=== PATIENT | male | born 1960 | race Caucasian/White ===

== ENCOUNTER 2016-02-20 15:18 | Emergency (ER) | payer OTHER ==
[~2016-02-20 15:18] MED LIST: ASPIRIN EC LOW81 MG PO; ATIVAN0.5 MG PO; ATORVASTATIN CA20 MG PO; COUMADIN5 MG PO; LASIX40 MG PO; METFORMIN HCL500 MG PO; METOPROLOL TART25 MG PO; POTASSIUM CHLO10 ME2 PO; PROAIR HFA IN; QVAR80 MCG IN; TYLENOL325 MG PO
--- NOTE | 2016-02-20 19:06 | DIAGNOSTIC IMAGING REPORT ---
PROCEDURE: XR CHEST 1 VIEW INDICATION: CHEST PAIN TECHNIQUE: Portable AP view 06:33 p.m. COMPARISON: Chest 02/02/2016 FINDINGS: Lungs are clear. Heart and mediastinum are normal. Thorax is normal. IMPRESSION: 1. No acute disease
--- NOTE | 2016-02-20 21:31 | ED ORDER SUMMARY ---
..... Patient: RAMIRO NAVARRO OrderSheet [facility] VisitID: [id number] [place] [address] 55y, M Registration Date/Time: 02/20/2016 ORDER SHEET Weight: 99.7 kg (stated) Allergies: Codeine GENERAL ORDERS: Travelift Operator (Continuous) (Chest Pain) (16:10 02/20/2016 JRghislaine R.N. verbal order read back to Markos DOBBINS) (16:38 LNations ER Tech1) CBC w Diff Urgent (16:10 02/20/2016 JRghislaine R.N. verbal order read back to Markos DOBBINS) (Ack 16:17 [facility] ER Tech1) (Cancelled: Duplicate Order16:47 Markos DOBBINS) CMP Urgent (16:02/20/2016 JRghislaine R.N. verbal order read back to Markos DOBBINS) (Ack 16:17 [facility] ER Tech1) (Cancelled: Duplicate Order16:47 Markos DOBBINS) EKG - ER Stat (16:10 02/20/2016 JRghislaine R.N. verbal order read back to Markos DOBBINS) (16:38 LNations ER Tech1) Old Records (16:10 02/20/2016 JRomanelli R.N. verbal order read back to Markos DOBBINS) (Ack 16:32 [facility] ER Tech1) (16:51 [facility] ER Tech1) Cardiac Panel Stat (16:10 02/20/2016 JRghislaine R.N. verbal order read back to Markos DOBBINS) (Ack 16:17 [facility] ER Tech1) (16:51 JRomanelli R.N.) PT with INR Urgent (16:24 02/20/2016 JRbarreraelli R.N. verbal order read back to Markos DOBBINS) (Ack 16:30 [facility] ER Tech1) (16:51 JRomanelli R.N.) UA-Culture if indicated Urgent (16:24 02/20/2016 JRomanelli R.N. verbal order read back to Markos DOBBINS) (Ack 16:30 [facility] ER Tech1) (18:05 JRomanelli R.N.) BNP Urgent (16:48 02/20/2016 Markos DOBBINS) (16:51 Jeovanny Bryant) Chest 1V Urgent (18:28 02/20/2016 Markos DOBBINS) (18:47 MCampbell) MEDICATION ORDERS: NitroGLYCERIN SL 0.4 mg (x3 PRN Chest Pain) (18:23 02/20/2016 Markos DOBBINS) (18:29 Jeovanny Zavala.NMartina) NitroGLYCERIN Paste Topical 1 in. (NOW, to CW) (18:52 02/20/2016 Jeovanny Bryant verbal order read back to Markos DOBBINS) (18:54 Jeovanny Villafuerte.) IV FLUIDS: IV Saline Lock (16:10 02/20/2016 Jeovanny Bryant verbal order read back to Markos DOBBINS) (18:28 Jeovanny Bryant) ORDER SHEET NOTES: [Electronically signed by Lolita Bundy R.N. (00:57 02/21/2016)] [Electronically signed by Farhad Stephens MD (14:16 02/21/2016)] [Electronically locked/signed by Lolita Bundy R.N. (00:57 02/21/2016)]
--- NOTE | 2016-02-20 21:31 | ED CLINICAL REPORT ---
Clinical Report - Physicians/Mid Levels [facility] [address] [place] [address] 02/20/2016 15:20 [facility]: [id number] Time Seen: 15:56 Feb 20 2016. Arrived- By private vehicle. Historian- patient. CPT: ER phys charges level 5 plus (#[id number]). EKG interpretation (#[id number]). HISTORY OF PRESENT ILLNESS Chief Complaint: DYSPNEA. This started about 1400; HAd a spell of palpitations with chest pressure. The palpitations l;asted 30 minutes and when it quit the pressure went down to a residual 2/10 level. and is still present but is better now. The dyspnea is described as moderate. (none). No cough, sputum production, fever, sweating episodes or wheezing. No chills, calf pain or foot swelling. He has had chest discomfort and palpitations. Similar symptoms previously: Worse. Recent medical care: The patient was seen recently at this facility in the emergency department and hospitalized (17 days ago). ( Admitted at [facility] then had a follow up cardiac ETT at [facility] , Per Dr Monson, but pt has not heard the results yet.). Seen for similar symptoms. Evaluation/treatment- CTA negative. REVIEW OF SYSTEMS The patient has not had weight loss. No muscle aches, sore throat or throat, nasal discharge or sinus drainage. No nausea, vomiting, abdominal pain or pain or diarrhea. No black stools or stools, bloody stools or stools or headache. No fainting episodes, difficulty with urination or urination or excessive urination. No skin rash or rash, enlarged lymph nodes, joint pain or runny nose. No mouth sores, calf pain, cough, difficulty breathing or urinary frequency. No alteration in mental status, weakness, diabetic symptoms or easy bruising. EF 25% on prior Nuclear ETT per discussion with Dr. Monson. All systems otherwise negative, except as recorded above. PAST HISTORY Atrial Fibrillation. Chest Pain. Lung Disease. Irregular heartbeat. COPD - Chronic Obstructive Pulmonary Disease. Mental Illness. Pulmonary Embolism. Anxiety Reaction. PTSD. Chronic Back Pain. Diabetes Mellitus. Substance Abuse. Hypertension. Immunizations. Sciatica. Intervertebral Disc Disease. Lumbar Radiculopathy. Back Injury. --16:06 Andrea Tubbs R.N. ADDITIONAL SURGERIES: Back Surgery. Knee Surgery. Tonsillectomy. Medications: Lasix Oral 40 mg. Metoprolol Tartrate Oral 25 mg. Potassium Chloride Oral 20 meq, daily. ProAir HFA Inhalation. Qvar Inhalation. Warfarin Sodium Oral 5 mg. Allergies: Codeine. Definite Moderate(itching, swelling). SOCIAL HISTORY Former smoker. History of drug use: marijuana. No alcohol use. ADDITIONAL NOTES The nursing notes have been reviewed. PHYSICAL EXAM Vital Signs: 02/20/2016 15:59 BP: 127/82. HR: 68. RR: 18. O2 saturation: 98%. Temp: 98.8 F. Pain level now: 03/23. Appearance: Alert. Patient in mild distress. Eyes: Eyes normal inspection. ENT: Pharynx normal. Uvula midline. Neck: Normal inspection. No jugular venous distention. CVS: Normal heart rate and rhythm. Heart sounds normal. Pulses normal. Respiratory: No respiratory distress. Breath sounds normal. Abdomen: Soft and nontender. Back: Normal inspection. Skin: Skin warm. Normal skin color. No rash. Extremities: Extremities exhibit normal ROM. No lower extremity edema. Neuro: Oriented X 3. No motor deficit. No sensory deficit. Reflexes normal. LABS, X-RAYS, AND EKG EKG: Normal sinus rhythm. Normal P waves. Normal QRS complex. Normal axis. Non-specific ST segment / T wave abnormalities. EKG unchanged when compared with prior EKG. The study has been interpreted contemporaneously. The study has been independently viewed by me. The EKG appears to be a good tracing. Chest X-ray: Normal Chest X-Ray. Laboratory Tests: UA-Culture if indicated: (VALENTIN: 02/20/2016 17:30) ( MsgRcvd 02/20/2016 17:52) Final results Test Result Flag Units (Reference) URINE COLOR YELLOW URINE APPEARANCE CLEAR URINE GLUCOSE NEGATIVE (NEGATIVE) URINE BILIRUBIN NEGATIVE (NEGATIVE) URINE KETONE NEGATIVE (NEGATIVE) URINE SPECIFIC GRAVITY 1.025 (1.010-1.030) URINE PH 6.0 (5.0-8.0) URINE PROTEIN NEGATIVE (NEGATIVE) URINE UROBILINOGEN 0.2 EU/dL (0.2-1.0) URINE NITRITE NEGATIVE (NEGATIVE) URINE BLOOD NEGATIVE (NEGATIVE) URINE LEUK ESTERASE NEGATIVE (NEGATIVE) URINE RBC NONE SEEN rbc/hpf (0-1) URINE WBC 0-1 wbc/hpf (0-1) URINE EPITHELIAL CELLS RARE EPI/hpf (0-5) URINE BACTERIA TRACE (<1+) (NONE SEEN) URINE COMMENT CULT NOT INDICATED URINE CULTURES ARE SET-UP BASED ON THE FOLLOWING CRITERIA:POSITIVE NITRITEPOSITIVE LEUKOCYTE ESTERASEGREATER THAN 10 WHITE BLOOD CELLSMODERATE (2+) OR GREATER BACTERIA CBC w Diff: (VALENTIN: 02/20/2016 16:15) ( [facility] 02/20/2016 17:54) Final results Test Result Flag Units (Reference) WHITE BLOOD COUNT 7.1 K/uL (4.5-11.5) RED BLOOD COUNT 6.13 *H M/uL (4.50-5.90) HEMOGLOBIN 17.8 H gm/dL (13.5-17.5) HEMATOCRIT 53.6 H % (41.0-53.0) MEAN CELL VOLUME 87 fL (80-100) MEAN CORPUSCULAR HGB 29 pg (26-34) MEAN CORPUSCULAR HGB CONC 33 g/dL (31-37) RED CELL DISTRIBUTION WIDTH 13.9 % (11.6-14.8) PLATELET COUNT 216 K/uL (150-400) NEUTROPHIL % 63.4 % (50-75) LYMPH % 22.3 L % (25-40) MONO % 10.9 % (3-14) EOSINOPHIL % 2.3 % (0-4) BASOPHIL % 1.1 % (0-2) RBC MORPHOLOGY 1+ ERYTHROCYTOSIS~~NORMOCHROMIC~~NORMOCYTIC PT with INR: (VALENTIN: 02/20/2016 16:15) ( MsgRcvd 02/20/2016 16:40) Final results Test Result Flag Units (Reference) INR 1.4 H (0.8-1.2) Low Intensity Therapy: INR 1.5-2.0 PT range 18.5-23.1Mod.Intensity Therapy: INR 2.0-3.0 PT range 23.1-31.5High Intensity Therapy: INR 2.5-3.5 PT range 27.4-35.5High Intensity Therapy 2: INR 3.0-4.0 PT range 31.5-39.3 BNP: (VALENTIN: 02/20/2016 16:35) ( NhgRcvd 02/20/2016 17:17) Final results Test Result Flag Units (Reference) B-TYPE NATRIURETIC PEPTIDE 142 H pg/ml (5-100) CHEM 13 PANEL: (VALENTIN: 02/20/2016 16:15) ( NhgRcvd 02/20/2016 16:51) Final results Test Result Flag Units (Reference) GLUCOSE 149 H mg/dL (70-110) BUN 30 H mg/dL (7-18) CREATININE 1.2 mg/dL (0.6-1.3) Estimated GFR >60 mL/min Estimated GFR- >60 mL/min Note: Persistent reduction over 3 months in eGFR<60 mL/min/1.73 m2 defines CKD. Patients with eGFR values>=60 mL/min/1.73 m2 may also have CKD if evidence ofpersistent proteinuria. Additional information may be foundat www.kidney.org. SODIUM 137 mmol/L (136-145) POTASSIUM 4.5 mmol/L (3.5-5.1) CHLORIDE 104 mmol/L (98-107) CARBON DIOXIDE 29 mmol/L (21-32) CALCIUM 8.7 mg/dL (8.5-10.1) TOTAL PROTEIN 7.5 g/dL (6.4-8.2) ALBUMIN 3.5 g/dL (3.3-5.0) BILIRUBIN, TOTAL 0.5 mg/dL (0.0-1.0) ALKALINE PHOSPHATASE 100 U/L (46-116) AST (SGOT) 26 U/L (15-37) ALT (SGPT) 55 U/L (12-78) CPK 49 U/L (24-260) MAGNESIUM 2.1 mg/dL (1.8-2.4) TROPONIN I <0.05 ng/mL (0.00-1.5) TROPONIN REFERENCE RANGE:<0.1 NEGATIVE0.1-1.5 INDETERMINANT>1.5 POSITIVE . PROGRESS AND PROCEDURES Course of Care: ASA already taken at home by the patient NTG in the ER and resolution of the 2/10 chest pressure. NTG paste applied and pt remained stable. Discussed with Dr Monson , Safety Glass Installer and he notes pt got an ETT , not a cath. That there were mild abnormalities on the ETT. EF was 25% . Pt had a run of wide complex tachycardia in the ER. The strip and the admission EKG were faxed to Dr Monson for evaluation. It was recommended for unstable angina that the patient be admitted for possible cath at [facility]. Attrempt to acquire bed at [facility] failed due to lack of beds. Several further attempts were made to contact outside hospitals that may have a bed. In the process of talking with other hospitals, the patient decided he did not want to wait and was going to go home. Discussed risks including disability and . Pt still wants to go home. He will see his card sorter tomorrow. Pt given rx of nitroglycerin paste and told to continue ASA daily. Pt will leave AMA. Patient/family counseled. Old medical records ordered. Disposition: Discharged. Condition: guarded and improved. CLINICAL IMPRESSION New onset angina .12 lead EKG performed. Leaving AMA Mild polycythemia Pre-renal azotemia. INSTRUCTIONS No strenuous activity. Rest. (Aspirin 325 mg a day. Increase your metoprolol to double the dose.). Your Current Medications: CONTINUE TAKING THE FOLLOWING MEDICATIONS: Albuterol Sulfate Inhalation : 1-2 puffs PRN. Aspirin Oral : Tablet 81 mg, 1 tablet daily. Lasix Oral : 40 mg. Lipitor Oral : 40 mg at bedtime. Lisinopril Oral : 10 mg daily. LORazepam Oral : 0.5 mg 3x a day, prn. Metoprolol Tartrate Oral : 50 mg 2 x daily. Metoprolol-HCTZ ER Oral : Tablet Extended Release 24 Hour 25-12.5 mg, 25 mg daily in AM. Potassium Chloride ER Oral. Potassium Chloride Oral : 20 meq daily. ProAir HFA Inhalation. Qvar Inhalation : Aerosol Solution 40 mcg/act, one puff 2 x daily. Warfarin Sodium Oral : 5 mg 1-2 tabs daily, prn, per MD's order. Prescription Medications: Nitrol: apply 1 inch to chest wall every 8 hours. Dispense sixty (60) gm. No refills. Substitution is permissible. Follow-up: Follow up with a card sorter tomorrow. Call for the next available appointment. Understanding of the discharge instructions verbalized by patient. (Electronically signed by Farhad Stephens MD 02/21/2016 14:16)
--- NOTE | 2016-02-20 21:31 | ED ORDER SUMMARY ---
..... Patient: RAMIRO NAVARRO OrderSheet [facility] VisitID: [id number] [place] [address] 55y, M Registration Date/Time: 02/20/2016 ORDER SHEET Weight: 99.7 kg (stated) Allergies: Codeine GENERAL ORDERS: Handle And Vent Machine Operator (Continuous) (Chest Pain) (16:10 02/20/2016 JRghislaine R.N. verbal order read back to Markos DOBBINS) (16:38 LNations ER Tech1) CBC w Diff Urgent (16:10 02/20/2016 JRghislaine R.N. verbal order read back to Markos DOBBINS) (Ack 16:17 [facility] ER Tech1) (Cancelled: Duplicate Order16:47 Markos DOBBINS) CMP Urgent (16:02/20/2016 JRghislaine R.N. verbal order read back to Markos DOBBINS) (Ack 16:17 [facility] ER Tech1) (Cancelled: Duplicate Order16:47 Markos DOBBINS) EKG - ER Stat (16:10 02/20/2016 JRghislaine R.N. verbal order read back to Markos DOBBINS) (16:38 LNations ER Tech1) Old Records (16:10 02/20/2016 JRomanelli R.N. verbal order read back to Markos DOBBINS) (Ack 16:32 [facility] ER Tech1) (16:51 [facility] ER Tech1) Cardiac Panel Stat (16:10 02/20/2016 JRghislaine R.N. verbal order read back to Markos DOBBINS) (Ack 16:17 [facility] ER Tech1) (16:51 JRomanelli R.N.) PT with INR Urgent (16:24 02/20/2016 JRbarreraelli R.N. verbal order read back to Markos DOBBINS) (Ack 16:30 [facility] ER Tech1) (16:51 JRomanelli R.N.) UA-Culture if indicated Urgent (16:24 02/20/2016 JRomanelli R.N. verbal order read back to Markos DOBBINS) (Ack 16:30 [facility] ER Tech1) (18:05 JRomanelli R.N.) BNP Urgent (16:48 02/20/2016 Markos DOBBINS) (16:51 Jeovanny Bryant) Chest 1V Urgent (18:28 02/20/2016 Markos DOBBINS) (18:47 MCampbell) MEDICATION ORDERS: NitroGLYCERIN SL 0.4 mg (x3 PRN Chest Pain) (18:23 02/20/2016 Markos DOBBINS) (18:29 Jeovanny Zavala.NMartina) NitroGLYCERIN Paste Topical 1 in. (NOW, to CW) (18:52 02/20/2016 Jeovanny Bryant verbal order read back to Markos DOBBINS) (18:54 Jeovanny Villafuerte.) IV FLUIDS: IV Saline Lock (16:10 02/20/2016 Jeovanny Bryant verbal order read back to Markos DOBBINS) (18:28 Jeovanny Bryant) ORDER SHEET NOTES: [Electronically signed by Lolita Bundy R.N. (00:57 02/21/2016)] [Electronically signed by Farhad Stephens MD (14:16 02/21/2016)] [Electronically locked/signed by Lolita Bundy R.N. (00:57 02/21/2016)]
--- NOTE | 2016-02-20 21:31 | ED NURSING NOTES ---
Clinical Report - Nurses [facility] [address] [place] [address] 02/20/2016 15:20 Patient: RAMIRO NAVARRO TRIAGE Triage time 15:55 Feb 20 2016. Acuity: LEVEL 3. Chief Complaint: SHORTNESS OF BREATH and (cardiac dysrhytmias). Alert. SUDEEP COMA SCORE: Sudeep Coma Scale: 15- eyes open spontaneously (4); best verbal response- oriented x 4 (5); best motor response- obeys commands (6). --17:08 Andrea Tubbs R.N. 15:59 02/20/16. BP: 127/82. HR: 68. RR: 18. O2 saturation: 98% on room air. Temp: 98.8 F (oral). Pain level now: 2/10. Additional comments: Chest Pain. --17:08 Andrea Tubbs R.N. Weight: 99.7 kg stated. Height/Length: 72 inches Per Patient. BMI: 29.8. --16:03 Andrea uTbbs R.N. Medications Metoprolol Tartrate Oral 50 mg, 2 x daily. --16:02 Andrea Tubbs R.N. Qvar Inhalation (Aerosol Solution 40 mcg/act) one puff, 2 x daily. Warfarin Sodium Oral 5 mg 1-2 tabs, daily as needed (per MD's order). --16:02 Andrea Tubbs R.N. Lasix Oral 40 mg. Potassium Chloride Oral 20 meq, daily. ProAir HFA Inhalation. --16:02 Andrea Tubbs R.N. Metoprolol-HCTZ ER Oral (Tablet Extended Release 24 Hour 25-12.5 mg) 25 mg, daily in AM. --18:12 Andrea Tubbs R.N. Lisinopril Oral 10 mg, daily. --18:13 Andrea Tubbs R.N. LORazepam Oral 0.5 mg, 3x a day as needed. --18:13 Andrea Tubbs R.N. Lipitor Oral 40 mg, at bedtime. --18:14 Andrea Tubbs R.N. Aspirin Oral (Tablet 81 mg) 1 tablet, daily. --18:14 Andrea uTbbs R.N. Potassium Chloride ER Oral. --18:15 Andrea Tubbs R.N. Albuterol Sulfate Inhalation 1-2 puffs, PRN. --18:18 Andrea Tubbs R.N. The following entry was struck and corrected by Andrea Tubbs R.N., 18:18 (02/20/16) Reason for correction - other(correction). <<STRICKEN ENTRY-- Warfarin Sodium Oral 5 mg. --16:02 Andrea Tubbs R.N. --END STRIKE>> The following entry was struck and corrected by Andrea Tubbs R.N., 18:17 (02/20/16) Reason for correction - other(correction). <<STRICKEN ENTRY-- Qvar Inhalation. --16:02 Andrea Tubbs R.N. --END STRIKE>> The following entry was struck and corrected by Andrea Tubbs R.N., 18:12 (02/20/16) Reason for correction - other(correction). <<STRICKEN ENTRY-- Metoprolol Tartrate Oral 75 mg in AM, 25mg in PM, 2 x daily. --16:02 Andrea Tubbs R.N. --END STRIKE>> The following entry was struck and corrected by Andrea Tubbs R.N., 17:42 (02/20/16) Reason for correction - other(correction). <<STRICKEN ENTRY-- Metoprolol Tartrate Oral 25 mg. --16:02 Andrea Tubbs R.N. --END STRIKE>>. Allergies Codeine. Definite Moderate(itching, swelling) --16:02 Andrea Tubbs R.N. History Arrived by private vehicle. Historian: patient. Accompanied by family. Primary physician (Ermias (Cardio)). ( SOB and heart fluttering). Onset. (about 3 hours ago). He has had chills, a cough, wheezing and chest pain. Treatment INSOLE AND HEEL STIFFENER: None. PAST MEDICAL HX: Immunizations: status is unknown. SOCIAL HX: Former smoker, end date 01/2016. History of drug use: marijuana. No alcohol use. No infectious disease exposure. ABUSE ASSESSMENT: No report of abuse. FALL RISK ASSESSMENT: Fall risk assessment completed. No fall risk identified. NUTRITIONAL RISK ASSESSMENT: The nutritional risk assessment revealed no deficiencies. FUNCTIONAL ASSESSMENT: Functional assessment: no impairments noted. LEARNING NEEDS ASSESSMENT: The learning needs assessment revealed no barriers. SKIN INTEGRITY ASSESSMENT: Skin integrity risk assessment completed. No skin integrity risk identified. --17:08 Andrea Tubbs R.N. PROBLEMS: Atrial Fibrillation. Chest Pain. Lung Disease. Irregular heartbeat. COPD - Chronic Obstructive Pulmonary Disease. Mental Illness. Pulmonary Embolism. Anxiety Reaction. PTSD. Chronic Back Pain. Diabetes Mellitus. Substance Abuse. Hypertension. Immunizations. Sciatica. Intervertebral Disc Disease. Lumbar Radiculopathy. Back Injury. --16:06 Andrea Tubbs R.N. ADDITIONAL SURGERIES: Back Surgery. Knee Surgery. Tonsillectomy. --16:07 Andrea Tubbs R.N. Interventions ID band on patient. To treatment room. --17:08 Andrea Tubbs R.N. PHYSICAL ASSESSMENT Ambulatory to room. GENERAL / NEURO / PSYCH: Alert. Oriented X 4. HEENT: Mucous membranes are pink. RESPIRATORY: Mild respiratory distress. Respirations not labored. CVS: Normal sinus rhythm noted. Capillary refill less than 2 seconds. GI / : Abdomen soft and nontender. Bowel sounds within normal limits. SKIN: Skin is warm and dry. Normal skin turgor. --16:08 Andrea Tubbs R.N. NURSING PROGRESS NOTES turbine mechanic, pulse oximeter and NIBP monitor placed on patient; student accounts coordinator- Lead II and V1; monitor alarms on. Patient gowned. Reassurance given to the patient. Patient identifiers checked. Call light placed in reach. Side rails up x 2. Bed placed in lowest position. Brakes of bed on. Patient ready for evaluation- chart flagged and ED physician notified. --16:09 Andrea Tubbs R.N. 17:30 18:01 Feb 20 2016. Patient ID band checked for patient name, birthdate and medical record number: patient confirmed. Instructions provided to collect clean catch urine and patient verbalized understanding. Clean catch urine collected with return of yellow-colored clear urine; odor is normal; sample sent to lab for urinalysis. Specimen labeled in the presence of the patient. --18:01 Andrea Tubbs R.N. 16:00 02/20/2016 Site #1 started via IV in the right forearm with an 20g angiocath, with aseptic technique and good blood return; one attempt. Blood drawn: rainbow set. Labeled in the presence of the patient and sent to the lab. Saline lock flushed with 10 mL saline. --18:28 Andrea Tubbs R.N. 18:24 02/20/2016 Nitroglycerin SL Tablets 0.4 mg given. Allergies verified and confirmed 5 rights. --18:29 Andrea Tubbs R.N. 17:00 02/20/16. BP: 125/81. HR: 69. RR: 18. O2 saturation: 95%. Pain level now: 03/23. --18:35 Andrea Tubbs R.N. 18:00 02/20/16. BP: 108/77. HR: 64. RR: 16. O2 saturation: 94%. Pain level now: 03/23. --18:36 Andrea Tubbs R.N. 18:46 02/20/2016 Nitroglycerin SL Tablets 0.4 mg given. Allergies verified and confirmed 5 rights. --18:51 Andrea Tubbs R.N. 18:49 02/20/2016 NITROGLYCERIN PASTE Topical Paste 1 inch. Applied to the left chest. Allergies verified and confirmed 5 rights. --18:54 Andrea Tubbs R.N. DISPOSITION / DISCHARGE 21:02/20/16. BP: 115/96. HR: 84. RR: 16. O2 saturation: 95% on room air. Temp: 98.6 F. Pain level now: 0. --21:06 Andrea Tubbs R.N. 21:02/20/16. --21:06 Andrea Tubbs R.N. Departure time: 2104. Condition at departure: improved. No learning barriers present. Discharge instructions provided and reviewed with the patient. Reviewed medication(s) (continue your usual medications as previously, but increase your Metoprolol by 100mg in AM and 100mg in the PM). Reviewed referral to a electronic parts salesperson for followup (tomorrow). Patient verbalized understanding. Written instructions provided in Bulgarian. The patient left the Emergency Department against medical advice and without completion of treatment; patient was accompanied by a cupola tender. The patient appears to be alert, oriented x4, coherent and belligerent. The patient notified the ED staff prior to leaving the department and stated is leaving the ED due to the long waiting time (pt does not want to be transferred to [facility]). Notified the ED physician of patient departure. Prior to leaving the ED, he was advised to stay for completion of treatment. Forms. He left the Emergency Department ambulatory and via private vehicle. The patient was discharged by the physician. He was discharged home. He left the Emergency Department ambulatory and via private vehicle. Patient driving. --21:10 Andrea Tubbs R.N. ( writes discharge instructions, teaching done with pt. Pt anxious to go, signs papers, states understanding but then asks to hang out for a few mins so his phone can charge.). --21:35 Lolita Bundy R.N. Locked/Released at 02/21/2016 0:57 by Lolita Bundy R.N.
--- NOTE | 2016-02-20 21:31 | ED NURSING NOTES ---
Clinical Report - Nurses [facility] [address] [place] [address] 02/20/2016 15:20 Patient: RAMIRO NAVARRO TRIAGE Triage time 15:55 Feb 20 2016. Acuity: LEVEL 3. Chief Complaint: SHORTNESS OF BREATH and (cardiac dysrhytmias). Alert. SUDEEP COMA SCORE: Sudeep Coma Scale: 15- eyes open spontaneously (4); best verbal response- oriented x 4 (5); best motor response- obeys commands (6). --17:08 Andrea Tubbs R.N. 15:59 02/20/16. BP: 127/82. HR: 68. RR: 18. O2 saturation: 98% on room air. Temp: 98.8 F (oral). Pain level now: 2/10. Additional comments: Chest Pain. --17:08 Andrea Tubbs R.N. Weight: 99.7 kg stated. Height/Length: 72 inches Per Patient. BMI: 29.8. --16:03 Andrea Tubbs R.N. Medications Metoprolol Tartrate Oral 50 mg, 2 x daily. --16:02 Andrea Tubbs R.N. Qvar Inhalation (Aerosol Solution 40 mcg/act) one puff, 2 x daily. Warfarin Sodium Oral 5 mg 1-2 tabs, daily as needed (per MD's order). --16:02 Andrea Tubbs R.N. Lasix Oral 40 mg. Potassium Chloride Oral 20 meq, daily. ProAir HFA Inhalation. --16:02 Andrea Tubbs R.N. Metoprolol-HCTZ ER Oral (Tablet Extended Release 24 Hour 25-12.5 mg) 25 mg, daily in AM. --18:12 Andrea Tubbs R.N. Lisinopril Oral 10 mg, daily. --18:13 Andrea Tubbs R.N. LORazepam Oral 0.5 mg, 3x a day as needed. --18:13 Andrea Tubbs R.N. Lipitor Oral 40 mg, at bedtime. --18:14 Andrea Tubbs R.N. Aspirin Oral (Tablet 81 mg) 1 tablet, daily. --18:14 Andrea Tubbs R.N. Potassium Chloride ER Oral. --18:15 Andrea Tubbs R.N. Albuterol Sulfate Inhalation 1-2 puffs, PRN. --18:18 Andrea Tubbs R.N. The following entry was struck and corrected by Andrea Tubbs R.N., 18:18 (02/20/16) Reason for correction - other(correction). <<STRICKEN ENTRY-- Warfarin Sodium Oral 5 mg. --16:02 Andrea Tubbs R.N. --END STRIKE>> The following entry was struck and corrected by Andrea Tubbs R.N., 18:17 (02/20/16) Reason for correction - other(correction). <<STRICKEN ENTRY-- Qvar Inhalation. --16:02 Andrea Tubbs R.N. --END STRIKE>> The following entry was struck and corrected by Andrea Tubbs R.N., 18:12 (02/20/16) Reason for correction - other(correction). <<STRICKEN ENTRY-- Metoprolol Tartrate Oral 75 mg in AM, 25mg in PM, 2 x daily. --16:02 Andrea Tubbs R.N. --END STRIKE>> The following entry was struck and corrected by Andrea Tubbs R.N., 17:42 (02/20/16) Reason for correction - other(correction). <<STRICKEN ENTRY-- Metoprolol Tartrate Oral 25 mg. --16:02 Andrea Tubbs R.N. --END STRIKE>>. Allergies Codeine. Definite Moderate(itching, swelling) --16:02 Andrea Tubbs R.N. History Arrived by private vehicle. Historian: patient. Accompanied by family. Primary physician (Ermias (Cardio)). ( SOB and heart fluttering). Onset. (about 3 hours ago). He has had chills, a cough, wheezing and chest pain. 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 PAST MEDICAL HX: Immunizations: status is unknown. SOCIAL HX: Former smoker, end date 01/2016. History of drug use: marijuana. No alcohol use. No infectious disease exposure. ABUSE ASSESSMENT: No report of abuse. FALL RISK ASSESSMENT: Fall risk assessment completed. No fall risk identified. NUTRITIONAL RISK ASSESSMENT: The nutritional risk assessment revealed no deficiencies. FUNCTIONAL ASSESSMENT: Functional assessment: no impairments noted. LEARNING NEEDS ASSESSMENT: The learning needs assessment revealed no barriers. SKIN INTEGRITY ASSESSMENT: Skin integrity risk assessment completed. No skin integrity risk identified. --17:08 Andrea Tubbs R.N. PROBLEMS: Atrial Fibrillation. Chest Pain. Lung Disease. Irregular heartbeat. COPD - Chronic Obstructive Pulmonary Disease. Mental Illness. Pulmonary Embolism. Anxiety Reaction. PTSD. Chronic Back Pain. Diabetes Mellitus. Substance Abuse. Hypertension. Immunizations. Sciatica. Intervertebral Disc Disease. Lumbar Radiculopathy. Back Injury. --16:06 Andrea Tubbs R.N. ADDITIONAL SURGERIES: Back Surgery. Knee Surgery. Tonsillectomy. --16:07 Andrea Tubbs R.N. Interventions ID band on patient. To treatment room. --17:08 Andrea Tubbs R.N. PHYSICAL ASSESSMENT Ambulatory to room. GENERAL / NEURO / PSYCH: Alert. Oriented X 4. HEENT: Mucous membranes are pink. RESPIRATORY: Mild respiratory distress. Respirations not labored. CVS: Normal sinus rhythm noted. Capillary refill less than 2 seconds. GI / : Abdomen soft and nontender. Bowel sounds within normal limits. SKIN: Skin is warm and dry. Normal skin turgor. --16:08 Andrea Tubbs R.N. NURSING PROGRESS NOTES dot net architect, pulse oximeter and NIBP monitor placed on patient; gymnasium teacher- Lead II and V1; monitor alarms on. Patient gowned. Reassurance given to the patient. Patient identifiers checked. Call light placed in reach. Side rails up x 2. Bed placed in lowest position. Brakes of bed on. Patient ready for evaluation- chart flagged and ED physician notified. --16:09 Andrea Tubbs R.N. 17:30 18:01 Feb 20 2016. Patient ID band checked for patient name, birthdate and medical record number: patient confirmed. Instructions provided to collect clean catch urine and patient verbalized understanding. Clean catch urine collected with return of yellow-colored clear urine; odor is normal; sample sent to lab for urinalysis. Specimen labeled in the presence of the patient. --18:01 Andrea Tubbs R.N. 16:00 02/20/2016 Site #1 started via IV in the right forearm with an 20g angiocath, with aseptic technique and good blood return; one attempt. Blood drawn: rainbow set. Labeled in the presence of the patient and sent to the lab. Saline lock flushed with 10 mL saline. --18:28 Andrea Tubbs R.N. 18:24 02/20/2016 Nitroglycerin SL Tablets 0.4 mg given. Allergies verified and confirmed 5 rights. --18:29 Andrea Tubbs R.N. 17:00 02/20/16. BP: 125/81. HR: 69. RR: 18. O2 saturation: 95%. Pain level now: 03/23. --18:35 Andrea Tubbs R.N. 18:00 02/20/16. BP: 108/77. HR: 64. RR: 16. O2 saturation: 94%. Pain level now: 03/23. --18:36 Andrea Tubbs R.N. 18:46 02/20/2016 Nitroglycerin SL Tablets 0.4 mg given. Allergies verified and confirmed 5 rights. --18:51 Andrea Tubbs R.N. 18:49 02/20/2016 NITROGLYCERIN PASTE Topical Paste 1 inch. Applied to the left chest. Allergies verified and confirmed 5 rights. --18:54 Andrea Tubbs R.N. DISPOSITION / DISCHARGE 21:02/20/16. BP: 115/96. HR: 84. RR: 16. O2 saturation: 95% on room air. Temp: 98.6 F. Pain level now: 0. --21:06 Andrea Tubbs R.N. 21:02/20/16. --21:06 Andrea Tubbs R.N. Departure time: 2104. Condition at departure: improved. No learning barriers present. Discharge instructions provided and reviewed with the patient. Reviewed medication(s) (continue your usual medications as previously, but increase your Metoprolol by 100mg in AM and 100mg in the PM). Reviewed referral to a web project manager for followup (tomorrow). Patient verbalized understanding. Written instructions provided in Indonesian. The patient left the Emergency Department against medical advice and without completion of treatment; patient was accompanied by a rod greaser. The patient appears to be alert, oriented x4, coherent and belligerent. The patient notified the ED staff prior to leaving the department and stated is leaving the ED due to the long waiting time (pt does not want to be transferred to [facility]). Notified the ED physician of patient departure. Prior to leaving the ED, he was advised to stay for completion of treatment. Forms. He left the Emergency Department ambulatory and via private vehicle. The patient was discharged by the physician. He was discharged home. He left the Emergency Department ambulatory and via private vehicle. Patient driving. --21:10 Andrea Tubbs R.N. ( writes discharge instructions, teaching done with pt. Pt anxious to go, signs papers, states understanding but then asks to hang out for a few mins so his phone can charge.). --21:35 Lolita Bundy R.N. Locked/Released at 02/21/2016 0:57 by Lolita Bundy R.N.
--- NOTE | 2016-02-20 21:31 | ED CLINICAL REPORT ---
Clinical Report - Physicians/Mid Levels [facility] [address] [place] [address] 02/20/2016 15:20 [id number] Time Seen: 15:56 Feb 20 2016. Arrived- By private vehicle. Historian- patient. CPT: ER phys charges level 5 plus (#[id number]). EKG interpretation (#[id number]). HISTORY OF PRESENT ILLNESS Chief Complaint: DYSPNEA. This started about 1400; HAd a spell of palpitations with chest pressure. The palpitations l;asted 30 minutes and when it quit the pressure went down to a residual 2/10 level. and is still present but is better now. The dyspnea is described as moderate. (none). No cough, sputum production, fever, sweating episodes or wheezing. No chills, calf pain or foot swelling. He has had chest discomfort and palpitations. Similar symptoms previously: Worse. Recent medical care: The patient was seen recently at this facility in the emergency department and hospitalized (17 days ago). ( Admitted at [facility] then had a follow up cardiac ETT at [facility] , Per Dr Monson, but pt has not heard the results yet.). Seen for similar symptoms. Evaluation/treatment- CTA negative. REVIEW OF SYSTEMS The patient has not had weight loss. No muscle aches, sore throat or throat, nasal discharge or sinus drainage. No nausea, vomiting, abdominal pain or pain or diarrhea. No black stools or stools, bloody stools or stools or headache. No fainting episodes, difficulty with urination or urination or excessive urination. No skin rash or rash, enlarged lymph nodes, joint pain or runny nose. No mouth sores, calf pain, cough, difficulty breathing or urinary frequency. No alteration in mental status, weakness, diabetic symptoms or easy bruising. EF 25% on prior Nuclear ETT per discussion with Dr. Monson. All systems otherwise negative, except as recorded above. PAST HISTORY Atrial Fibrillation. Chest Pain. Lung Disease. Irregular heartbeat. COPD - Chronic Obstructive Pulmonary Disease. Mental Illness. Pulmonary Embolism. Anxiety Reaction. PTSD. Chronic Back Pain. Diabetes Mellitus. Substance Abuse. Hypertension. Immunizations. Sciatica. Intervertebral Disc Disease. Lumbar Radiculopathy. Back Injury. --16:06 Andrea Tubbs R.N. ADDITIONAL SURGERIES: Back Surgery. Knee Surgery. Tonsillectomy. Medications: Lasix Oral 40 mg. Metoprolol Tartrate Oral 25 mg. Potassium Chloride Oral 20 meq, daily. ProAir HFA Inhalation. Qvar Inhalation. Warfarin Sodium Oral 5 mg. Allergies: Codeine. Definite Moderate(itching, swelling). SOCIAL HISTORY Former smoker. History of drug use: marijuana. No alcohol use. ADDITIONAL NOTES The nursing notes have been reviewed. PHYSICAL EXAM Vital Signs: 02/20/2016 15:59 BP: 127/82. HR: 68. RR: 18. O2 saturation: 98%. Temp: 98.8 F. Pain level now: 03/23. Appearance: Alert. Patient in mild distress. Eyes: Eyes normal inspection. ENT: Pharynx normal. Uvula midline. Neck: Normal inspection. No jugular venous distention. CVS: Normal heart rate and rhythm. Heart sounds normal. Pulses normal. Respiratory: No respiratory distress. Breath sounds normal. Abdomen: Soft and nontender. Back: Normal inspection. Skin: Skin warm. Normal skin color. No rash. Extremities: Extremities exhibit normal ROM. No lower extremity edema. Neuro: Oriented X 3. No motor deficit. No sensory deficit. Reflexes normal. LABS, X-RAYS, AND EKG EKG: Normal sinus rhythm. Normal P waves. Normal QRS complex. Normal axis. Non-specific ST segment / T wave abnormalities. EKG unchanged when compared with prior EKG. The study has been interpreted contemporaneously. The study has been independently viewed by me. The EKG appears to be a good tracing. Chest X-ray: Normal Chest X-Ray. Laboratory Tests: UA-Culture if indicated: (VALENTIN: 02/20/2016 17:30) ( MsgRcvd 02/20/2016 17:52) Final results Test Result Flag Units (Reference) URINE COLOR YELLOW URINE APPEARANCE CLEAR URINE GLUCOSE NEGATIVE (NEGATIVE) URINE BILIRUBIN NEGATIVE (NEGATIVE) URINE KETONE NEGATIVE (NEGATIVE) URINE SPECIFIC GRAVITY 1.025 (1.010-1.030) URINE PH 6.0 (5.0-8.0) URINE PROTEIN NEGATIVE (NEGATIVE) URINE UROBILINOGEN 0.2 EU/dL (0.2-1.0) URINE NITRITE NEGATIVE (NEGATIVE) URINE BLOOD NEGATIVE (NEGATIVE) URINE LEUK ESTERASE NEGATIVE (NEGATIVE) URINE RBC NONE SEEN rbc/hpf (0-1) URINE WBC 0-1 wbc/hpf (0-1) URINE EPITHELIAL CELLS RARE EPI/hpf (0-5) URINE BACTERIA TRACE (<1+) (NONE SEEN) URINE COMMENT CULT NOT INDICATED URINE CULTURES ARE SET-UP BASED ON THE FOLLOWING CRITERIA:POSITIVE NITRITEPOSITIVE LEUKOCYTE ESTERASEGREATER THAN 10 WHITE BLOOD CELLSMODERATE (2+) OR GREATER BACTERIA CBC w Diff: (VALENTIN: 02/20/2016 16:15) ( [facility] 02/20/2016 17:54) Final results Test Result Flag Units (Reference) WHITE BLOOD COUNT 7.1 K/uL (4.5-11.5) RED BLOOD COUNT 6.13 *H M/uL (4.50-5.90) HEMOGLOBIN 17.8 H gm/dL (13.5-17.5) HEMATOCRIT 53.6 H % (41.0-53.0) MEAN CELL VOLUME 87 fL (80-100) MEAN CORPUSCULAR HGB 29 pg (26-34) MEAN CORPUSCULAR HGB CONC 33 g/dL (31-37) RED CELL DISTRIBUTION WIDTH 13.9 % (11.6-14.8) PLATELET COUNT 216 K/uL (150-400) NEUTROPHIL % 63.4 % (50-75) LYMPH % 22.3 L % (25-40) MONO % 10.9 % (3-14) EOSINOPHIL % 2.3 % (0-4) BASOPHIL % 1.1 % (0-2) RBC MORPHOLOGY 1+ ERYTHROCYTOSIS~~NORMOCHROMIC~~NORMOCYTIC PT with INR: (VALENTIN: 02/20/2016 16:15) ( MsgRcvd 02/20/2016 16:40) Final results Test Result Flag Units (Reference) INR 1.4 H (0.8-1.2) Low Intensity Therapy: INR 1.5-2.0 PT range 18.5-23.1Mod.Intensity Therapy: INR 2.0-3.0 PT range 23.1-31.5High Intensity Therapy: INR 2.5-3.5 PT range 27.4-35.5High Intensity Therapy 2: INR 3.0-4.0 PT range 31.5-39.3 BNP: (VALENTIN: 02/20/2016 16:35) ( AlgRcvd 02/20/2016 17:17) Final results Test Result Flag Units (Reference) B-TYPE NATRIURETIC PEPTIDE 142 H pg/ml (5-100) CHEM 13 PANEL: (VALENTIN: 02/20/2016 16:15) ( AlgRcvd 02/20/2016 16:51) Final results Test Result Flag Units (Reference) GLUCOSE 149 H mg/dL (70-110) BUN 30 H mg/dL (7-18) CREATININE 1.2 mg/dL (0.6-1.3) Estimated GFR >60 mL/min Estimated GFR- >60 mL/min Note: Persistent reduction over 3 months in eGFR<60 mL/min/1.73 m2 defines CKD. Patients with eGFR values>=60 mL/min/1.73 m2 may also have CKD if evidence ofpersistent proteinuria. Additional information may be foundat www.kidney.org. SODIUM 137 mmol/L (136-145) POTASSIUM 4.5 mmol/L (3.5-5.1) CHLORIDE 104 mmol/L (98-107) CARBON DIOXIDE 29 mmol/L (21-32) CALCIUM 8.7 mg/dL (8.5-10.1) TOTAL PROTEIN 7.5 g/dL (6.4-8.2) ALBUMIN 3.5 g/dL (3.3-5.0) BILIRUBIN, TOTAL 0.5 mg/dL (0.0-1.0) ALKALINE PHOSPHATASE 100 U/L (46-116) AST (SGOT) 26 U/L (15-37) ALT (SGPT) 55 U/L (12-78) CPK 49 U/L (24-260) MAGNESIUM 2.1 mg/dL (1.8-2.4) TROPONIN I <0.05 ng/mL (0.00-1.5) TROPONIN REFERENCE RANGE:<0.1 NEGATIVE0.1-1.5 INDETERMINANT>1.5 POSITIVE . PROGRESS AND PROCEDURES Course of Care: ASA already taken at home by the patient NTG in the ER and resolution of the 2/10 chest pressure. NTG paste applied and pt remained stable. Discussed with Dr Monson , Support Services Manager and he notes pt got an ETT , not a cath. That there were mild abnormalities on the ETT. EF was 25% . Pt had a run of wide complex tachycardia in the ER. The strip and the admission EKG were faxed to Dr Monson for evaluation. It was recommended for unstable angina that the patient be admitted for possible cath at [facility]. Attrempt to acquire bed at [facility] failed due to lack of beds. Several further attempts were made to contact outside hospitals that may have a bed. In the process of talking with other hospitals, the patient decided he did not want to wait and was going to go home. Discussed risks including disability and . Pt still wants to go home. He will see his brim setter tomorrow. Pt given rx of nitroglycerin paste and told to continue ASA daily. Pt will leave AMA. Patient/family counseled. Old medical records ordered. Disposition: Discharged. Condition: guarded and improved. CLINICAL IMPRESSION New onset angina .12 lead EKG performed. Leaving AMA Mild polycythemia Pre-renal azotemia. INSTRUCTIONS No strenuous activity. Rest. (Aspirin 325 mg a day. Increase your metoprolol to double the dose.). Your Current Medications: CONTINUE TAKING THE FOLLOWING MEDICATIONS: Albuterol Sulfate Inhalation : 1-2 puffs PRN. Aspirin Oral : Tablet 81 mg, 1 tablet daily. Lasix Oral : 40 mg. Lipitor Oral : 40 mg at bedtime. Lisinopril Oral : 10 mg daily. LORazepam Oral : 0.5 mg 3x a day, prn. Metoprolol Tartrate Oral : 50 mg 2 x daily. Metoprolol-HCTZ ER Oral : Tablet Extended Release 24 Hour 25-12.5 mg, 25 mg daily in AM. Potassium Chloride ER Oral. Potassium Chloride Oral : 20 meq daily. ProAir HFA Inhalation. Qvar Inhalation : Aerosol Solution 40 mcg/act, one puff 2 x daily. Warfarin Sodium Oral : 5 mg 1-2 tabs daily, prn, per MD's order. Prescription Medications: Nitrol: apply 1 inch to chest wall every 8 hours. Dispense sixty (60) gm. No refills. Substitution is permissible. Follow-up: Follow up with a brim setter tomorrow. Call for the next available appointment. Understanding of the discharge instructions verbalized by patient. (Electronically signed by Farhad Stephens MD 02/21/2016 14:16)
--- NOTE | 2016-02-21 14:16 | ED MAR SUMMARY ---
..... Medication Administration Record [facility] [address] [place] [address] Patient: RAMIRO NAVARRO Visit ID: [id number] 55y, M Weight: 99.7 kg Height/Length: 72 in BMI: 29.8 ALLERGIES: Codeine Given 18:24 02/20/2016 Andrea Tubbs, R.N. Medication Administered: NITROGLYCERIN [SL], Dose: 0.4 mg Tablets SL. Medication Ordered: NitroGLYCERIN SL 0.4 mg (x3 PRN Chest Pain). Given 18:46 02/20/2016 Andrea Tubbs, R.N. Medication Administered: NITROGLYCERIN [SL], Dose: 0.4 mg Tablets SL. Medication Ordered: NitroGLYCERIN SL 0.4 mg (x3 PRN Chest Pain). Given 18:49 02/20/2016 Andrea Tubbs, R.N. Medication Administered: NITROGLYCERIN PASTE [TOPICAL], Dose: 1 in. Paste Topical. Medication Ordered: NitroGLYCERIN Paste Topical 1 in. (NOW, to ).
--- NOTE | 2016-02-21 14:16 | ED DISCHARGE INSTRUCTIONS ---
Patient: RAMIRO NAVARRO General Instructions [facility] VisitID: [id number] [place] [address] 55y, M Registration Date/Time: 02/20/2016 New onset angina .12 lead EKG performed. Leaving AMA Mild polycythemia Pre-renal azotemia. INSTRUCTIONS No strenuous activity. Rest. (Aspirin 325 mg a day. Increase your metoprolol to double the dose.). Your Current Medications: CONTINUE TAKING THE FOLLOWING MEDICATIONS: Albuterol Sulfate Inhalation : 1-2 puffs PRN. Aspirin Oral : Tablet 81 mg, 1 tablet daily. Lasix Oral : 40 mg. Lipitor Oral : 40 mg at bedtime. Lisinopril Oral : 10 mg daily. LORazepam Oral : 0.5 mg 3x a day, prn. Metoprolol Tartrate Oral : 50 mg 2 x daily. Metoprolol-HCTZ ER Oral : Tablet Extended Release 24 Hour 25-12.5 mg, 25 mg daily in AM. Potassium Chloride ER Oral. Potassium Chloride Oral : 20 meq daily. ProAir HFA Inhalation. Qvar Inhalation : Aerosol Solution 40 mcg/act, one puff 2 x daily. Warfarin Sodium Oral : 5 mg 1-2 tabs daily, prn, per MD's order. Prescription Medications: Nitrol: apply 1 inch to chest wall every 8 hours. Dispense sixty (60) gm. No refills. Substitution is permissible. Follow-up: Follow up with a block stacker tomorrow. Call for the next available appointment. Understanding of the discharge instructions verbalized by patient. No strenuous activity. Rest. (Electronically signed by Farhad Stephens MD 02/21/2016 14:16)
--- NOTE | 2016-02-21 14:16 | ED MAR SUMMARY ---
..... Medication Administration Record [facility] [address] [place] [address] Patient: RAMIRO NAVARRO Visit ID: [id number] 55y, M Weight: 99.7 kg Height/Length: 72 in BMI: 29.8 ALLERGIES: Codeine Given 18:24 02/20/2016 Andrea Tubbs, R.N. Medication Administered: NITROGLYCERIN [SL], Dose: 0.4 mg Tablets SL. Medication Ordered: NitroGLYCERIN SL 0.4 mg (x3 PRN Chest Pain). Given 18:46 02/20/2016 Andrea Tubbs, R.N. Medication Administered: NITROGLYCERIN [SL], Dose: 0.4 mg Tablets SL. Medication Ordered: NitroGLYCERIN SL 0.4 mg (x3 PRN Chest Pain). Given 18:49 02/20/2016 Andrea Tubbs, R.N. Medication Administered: NITROGLYCERIN PASTE [TOPICAL], Dose: 1 in. Paste Topical. Medication Ordered: NitroGLYCERIN Paste Topical 1 in. (NOW, to ).
--- NOTE | 2016-02-21 14:16 | ED MED RECONCILIATION SUMMARY ---
Patient: RAMIRO NAVARRO Medication Reconciliation Report [facility] VisitID: [id number] [place] [address] 55y, M Registration Date/Time: 02/20/2016 Weight: 99.7 kg Height/Length: 72 in. BMI: 29.8 ALLERGIES: Codeine The patient's Home Medications are listed below: CONTINUE TAKING THE FOLLOWING MEDICATIONS: Albuterol Sulfate Inhalation 1-2 puffs, PRN Aspirin Oral (81 mg) 1 tablet, daily Lasix Oral 40 mg Lipitor Oral 40 mg, at bedtime Lisinopril Oral 10 mg, daily LORazepam Oral 0.5 mg, 3x a day Metoprolol Tartrate Oral 50 mg, 2 x daily Metoprolol-HCTZ ER Oral (25-12.5 mg) 25 mg, daily in AM Potassium Chloride ER Oral Potassium Chloride Oral 20 meq, daily ProAir HFA Inhalation Qvar Inhalation (40 mcg/act) one puff, 2 x daily Warfarin Sodium Oral 5 mg 1-2 tabs, daily, per MD's order The source(s) of the original Home Medication information: Not obtained. The following Medications were given to the patient in the Emergency Department: Nitroglycerin [SL] SL 0.4 mg, administered: 02/20/2016 6:24:00 PM Nitroglycerin [SL] SL 0.4 mg, administered: 02/20/2016 6:46:00 PM NITROGLYCERIN PASTE [TOPICAL] Topical 1 in., administered: 02/20/2016 6:49:00 PM The following Medications were prescribed to the patient: Nitrol: apply 1 inch to chest wall every 8 hours. Dispense sixty (60) gm. No refills. Substitution is permissible. -- Farhad Stephens MD
--- NOTE | 2016-02-21 14:16 | ED MED RECONCILIATION SUMMARY ---
Patient: RAMIRO NAVARRO Medication Reconciliation Report [facility] VisitID: [id number] [place] [address] 55y, M Registration Date/Time: 02/20/2016 Weight: 99.7 kg Height/Length: 72 in. BMI: 29.8 ALLERGIES: Codeine The patient's Home Medications are listed below: CONTINUE TAKING THE FOLLOWING MEDICATIONS: Albuterol Sulfate Inhalation 1-2 puffs, PRN Aspirin Oral (81 mg) 1 tablet, daily Lasix Oral 40 mg Lipitor Oral 40 mg, at bedtime Lisinopril Oral 10 mg, daily LORazepam Oral 0.5 mg, 3x a day Metoprolol Tartrate Oral 50 mg, 2 x daily Metoprolol-HCTZ ER Oral (25-12.5 mg) 25 mg, daily in AM Potassium Chloride ER Oral Potassium Chloride Oral 20 meq, daily ProAir HFA Inhalation Qvar Inhalation (40 mcg/act) one puff, 2 x daily Warfarin Sodium Oral 5 mg 1-2 tabs, daily, per MD's order The source(s) of the original Home Medication information: Not obtained. The following Medications were given to the patient in the Emergency Department: Nitroglycerin [SL] SL 0.4 mg, administered: 02/20/2016 6:24:00 PM Nitroglycerin [SL] SL 0.4 mg, administered: 02/20/2016 6:46:00 PM NITROGLYCERIN PASTE [TOPICAL] Topical 1 in., administered: 02/20/2016 6:49:00 PM The following Medications were prescribed to the patient: Nitrol: apply 1 inch to chest wall every 8 hours. Dispense sixty (60) gm. No refills. Substitution is permissible. -- Farhad Stephens MD
--- NOTE | 2016-02-21 14:16 | ED DISCHARGE INSTRUCTIONS ---
Patient: RAMIRO NAVARRO General Instructions [facility] VisitID: [id number] [place] [address] 55y, M Registration Date/Time: 02/20/2016 New onset angina .12 lead EKG performed. Leaving AMA Mild polycythemia Pre-renal azotemia. INSTRUCTIONS No strenuous activity. Rest. (Aspirin 325 mg a day. Increase your metoprolol to double the dose.). Your Current Medications: CONTINUE TAKING THE FOLLOWING MEDICATIONS: Albuterol Sulfate Inhalation : 1-2 puffs PRN. Aspirin Oral : Tablet 81 mg, 1 tablet daily. Lasix Oral : 40 mg. Lipitor Oral : 40 mg at bedtime. Lisinopril Oral : 10 mg daily. LORazepam Oral : 0.5 mg 3x a day, prn. Metoprolol Tartrate Oral : 50 mg 2 x daily. Metoprolol-HCTZ ER Oral : Tablet Extended Release 24 Hour 25-12.5 mg, 25 mg daily in AM. Potassium Chloride ER Oral. Potassium Chloride Oral : 20 meq daily. ProAir HFA Inhalation. Qvar Inhalation : Aerosol Solution 40 mcg/act, one puff 2 x daily. Warfarin Sodium Oral : 5 mg 1-2 tabs daily, prn, per MD's order. Prescription Medications: Nitrol: apply 1 inch to chest wall every 8 hours. Dispense sixty (60) gm. No refills. Substitution is permissible. Follow-up: Follow up with a synthetic filament extruder tomorrow. Call for the next available appointment. Understanding of the discharge instructions verbalized by patient. No strenuous activity. Rest. (Electronically signed by Farhad Stephens MD 02/21/2016 14:16)
== END 2016-02-20 21:35 | disposition home or self-care (01) ==
LOC: ED SRH 15:18
DX: I20.9 Angina pectoris, unspecified (principal); Z79.82 Long term (current) use of aspirin; D75.1 Secondary polycythemia; R79.89 Other specified abnormal findings of blood chemistry; I10 Essential (primary) hypertension; E11.9 Type 2 diabetes mellitus without complications; J98.4 Other disorders of lung; J44.9 Chronic obstructive pulmonary disease, unspecified; Z79.01 Long term (current) use of anticoagulants; Z79.899 Other long term (current) drug therapy
CPT/HCPCS: 90004; 90100; 90616; 91320; 92610; 92720; 94060; 95059

== ENCOUNTER 2016-02-29 17:53 | Emergency (ER) | payer OTHER ==
--- NOTE | 2016-02-29 18:22 | DIAGNOSTIC IMAGING REPORT ---
PROCEDURE: XR CHEST 1 VIEW INDICATION: CHEST PAIN TECHNIQUE: Portable AP view 06:03 p.m. COMPARISON: Chest 02/20/2016 and 02/02/2016 FINDINGS: Lungs are clear. Heart and mediastinum are normal. Thorax is normal. IMPRESSION: 1. Negative chest.
--- NOTE | 2016-02-29 20:59 | ED ORDER SUMMARY ---
..... Patient: RAMIRO NAVARRO OrderSheet [facility] VisitID: [id number] [address] [place] [address] 55y, M Registration Date/Time: 02/29/2016 ORDER SHEET Weight: 99.7 kg (stated) Allergies: Codeine GENERAL ORDERS: Chest 1V Urgent (17:56 02/29/2016 Gloria DOBBINS) (Ack 18:00 NHouse ER Tech1) (18:27 MCampbell) Biomedical Engineering Technician (Continuous) (17:57 02/29/2016 Gloria DOBBINS) (Ack 18:10 SStone R.N.) (18:11 LNations ER Tech1) CBC w Diff Urgent (17:57 02/29/2016 Gloria DOBBINS) (Ack 18:00 NHouse ER Tech1) (18:59 SRoberts R.N.) (19:01 NHouse ER Tech1) CMP Urgent (17:57 02/29/2016 Gloria DOBBINS) (Ack 18:00 NHouse ER Tech1) (18:59 SRoberts R.N.) (19:01 NHouse ER Tech1) UA-Culture if indicated Urgent (17:57 02/29/2016 Gloria DOBBINS) (Ack 18:00 NHouse ER Tech1) (22:11 SRoberts R.N.) PT with INR Urgent (17:57 02/29/2016 Gloria DOBBINS) (Ack 18:00 NHouse ER Tech1) (18:59 SRoberts R.N.) (19:01 NHouse ER Tech1) PTT Urgent (17:57 02/29/2016 Gloria DOBBINS) (Ack 18:00 NHouse ER Tech1) (18:59 SRoberts R.N.) (19:01 NHouse ER Tech1) D-Dimer Urgent (17:57 02/29/2016 Gloria DOBBINS) (Ack 18:00 NHouse ER Tech1) (18:59 SRoberts R.N.) (19:01 NHouse ER Tech1) BNP Urgent (17:57 02/29/2016 Gloria DOBBINS) (Ack 18:00 NHouse ER Tech1) (18:59 SRoberts R.N.) (19:01 NHouse ER Tech1) Amylase Urgent (17:57 02/29/2016 Gloria DOBBINS) (Ack 18:00 NHouse ER Tech1) (18:59 SRoberts R.N.) (19:01 NHouse ER Tech1) Lipase Urgent (17:57 02/29/2016 Gloria DOBBINS) (Ack 18:00 NHouse ER Tech1) (18:59 SRoberts R.N.) (19:01 NHouse ER Tech1) CPK Urgent (17:57 02/29/2016 Gloria DOBBINS) (Ack 18:00 NHouse ER Tech1) (18:59 SRoberts R.N.) (19:01 NHouse ER Tech1) Troponin-I Urgent (17:57 02/29/2016 Gloria DOBBINS) (Ack 18:00 NHouse ER Tech1) (18:59 SRoberts R.N.) (19:01 NHouse ER Tech1) Oxygen (2 L/min) (NC) (17:57 02/29/2016 Gloria DOBBINS) (Ack 18:10 SStone R.N.) (18:59 SRoberts R.N.) Pulse oximeter (17:57 02/29/2016 Gloria DOBBINS) (Ack 18:10 SStone R.N.) (18:59 SRoberts R.N.) EKG - ER Stat (17:57 02/29/2016 Gloria DOBBINS) (Ack 18:10 SStone R.N.) (18:11 LNations ER Tech1) MEDICATION ORDERS: Aspirin PO 325 mg (NOW) (17:57 02/29/2016 Gloria DOBBINS) (Ack 18:08 SStone R.N.) (18:08 SStone R.N.) Lovenox Subcut 1 mg/kg (HIGH ALERT MEDICATION, NOW) (18:58 02/29/2016 Gloria DOBBINS) (19:36 SRoberts R.N.) IV FLUIDS: IV Saline Lock (17:57 02/29/2016 Gloria DOBBINS) (Ack 18:08 SStone R.N.) ORDER SHEET NOTES: [Electronically signed by Cyndi Clark R.N. (22:13 02/29/2016)] [Electronically signed by Isrrael Castellanos MD (04:48 03/02/2016)] [Electronically locked/signed by Cyndi Clark R.N. (22:13 02/29/2016)]
--- NOTE | 2016-02-29 20:59 | ED CLINICAL REPORT ---
Clinical Report - Physicians/Mid Levels [facility] [address] [place] [address] 02/29/2016 17:53 Patient: RAMIRO NAVARRO Time Seen: 17:56. Arrived- By private vehicle. Historian- patient. HISTORY OF PRESENT ILLNESS Chief Complaint: CHEST PAIN. At its maximum, severity described as 7 / 10. When seen in the E.D., severity described as 4 / 10. Modifying factors- relieved by rest. This started today at about 1:30 PM and is still present. It was abrupt in onset and has been constant and waxing/waning. Onset during moderate exertion. It is described as sharp and it is described as located in the left chest area. The patient has had difficulty breathing and nausea and has experienced diaphoresis. Similar symptoms previously: Several times. REVIEW OF SYSTEMS No chills, fever, sweats, calf pain or cough. No difficulty breathing, abdominal pain, constipation, diarrhea or vomiting. No urinary problems. He has had palpitations and nausea. All systems otherwise negative, except as recorded above. PAST HISTORY Pulmonary embolism (He has Factor V Leiden deficiency. But he was told to stop his Coumadin for his pending angiography). PCP - None Cardiology Charles Fontana. SOCIAL HISTORY Former smoker, end date 01/2016. History of occasional drug use: marijuana. No alcohol use. Is a local resident. He lives alone. FAMILY HISTORY Heart disease in first-degree relative (mother and sibling). ADDITIONAL NOTES The nursing notes have been reviewed. PHYSICAL EXAM Vital Signs: 02/29/2016 17:58 BP: 107/75. HR: 79. RR: 14. O2 saturation: 98%. Temp: 97.7 F. Pain level now: 4/10. Have been reviewed. Appearance: Alert. Eyes: Pupils equal, round and reactive to light. ENT: Pharynx normal. Neck: Normal inspection. Neck supple. CVS: Normal heart rate and rhythm. Heart sounds normal. Respiratory: No respiratory distress. Breath sounds normal. Abdomen: Soft and nontender. Bowel sounds normal. No organomegaly. No mass. Obese. Back: Normal external inspection. No CVA tenderness. Skin: Skin warm and dry. Normal skin color. Normal skin turgor. Extremities: Mild right-sided and left-sided calf tenderness. Extremities exhibit normal ROM. No lower extremity edema. LABS, X-RAYS, AND EKG EKG: Rate: 71. LBBB. Changes present when compared to prior EKG. (01 February 2016 he was in atrial fibrillation with a left bundle branch block; on 20 February 2016 he was in sinus rhythm with T wave inversions V2 through V6). The study has been independently viewed by me. Chest X-ray: Normal Chest X-Ray. Laboratory Tests: CBC w Diff: (VALENTIN: 02/29/2016 18:03) ( MsgRcvd 02/29/2016 18:22) Final results Test Result Flag Units (Reference) WHITE BLOOD COUNT 8.4 K/uL (4.5-11.5) RED BLOOD COUNT 5.85 M/uL (4.50-5.90) HEMOGLOBIN 17.1 gm/dL (13.5-17.5) HEMATOCRIT 52.0 % (41.0-53.0) MEAN CELL VOLUME 89 fL (80-100) MEAN CORPUSCULAR HGB 29 pg (26-34) MEAN CORPUSCULAR HGB CONC 33 g/dL (31-37) RED CELL DISTRIBUTION WIDTH 14.2 % (11.6-14.8) PLATELET COUNT 219 K/uL (150-400) NEUTROPHIL % 58.9 % (50-75) LYMPH % 22.9 L % (25-40) MONO % 13.4 % (3-14) EOSINOPHIL % 2.5 % (0-4) BASOPHIL % 2.3 H % (0-2) PT with INR: (VALENTIN: 02/29/2016 18:03) ( MsgRcvd 02/29/2016 18:32) Final results Test Result Flag Units (Reference) INR 0.9 (0.8-1.2) Low Intensity Therapy: INR 1.5-2.0 PT range 18.5-23.1Mod.Intensity Therapy: INR 2.0-3.0 PT range 23.1-31.5High Intensity Therapy: INR 2.5-3.5 PT range 27.4-35.5High Intensity Therapy 2: INR 3.0-4.0 PT range 31.5-39.3 APTT 25 SECONDS (24-34) D-DIMER QUANTITATIVE 0.86 H ug/mLFEU (0.27-0.52) The primary value of this quantitative assay relates toits negative predictive value (i.e. exclusion) of pulmonaryembolism/deep vein thrombosis/DIC.Elevated levels of d-dimer may also occur with:, age, cancer, inflammation, liver disease,post-op, infection, hematoma, coronary disease, peripheralarteriopathy, bleeding disorders and thrombolytic treatment.Results should be correlated with other clinical andradiological data.Testing Methodology: Latex Immunoassay BNP: (VALENTIN: 02/29/2016 18:03) ( MsgRcvd 02/29/2016 18:47) Final results Test Result Flag Units (Reference) B-TYPE NATRIURETIC PEPTIDE 250 H pg/ml (5-100) CMP: (VALENTIN: 02/29/2016 18:03) ( MsgRcvd 02/29/2016 18:34) Final results Test Result Flag Units (Reference) GLUCOSE 101 mg/dL (70-110) BUN 29 H mg/dL (7-18) CREATININE 1.5 H mg/dL (0.6-1.3) Estimated GFR 51.45 mL/min Estimated GFR- >60 mL/min Note: Persistent reduction over 3 months in eGFR<60 mL/min/1.73 m2 defines CKD. Patients with eGFR values>=60 mL/min/1.73 m2 may also have CKD if evidence ofpersistent proteinuria. Additional information may be foundat www.kidney.org. SODIUM 142 mmol/L (136-145) POTASSIUM 4.5 mmol/L (3.5-5.1) CHLORIDE 104 mmol/L (98-107) CARBON DIOXIDE 33 H mmol/L (21-32) CALCIUM 8.9 mg/dL (8.5-10.1) TOTAL PROTEIN 8.0 g/dL (6.4-8.2) ALBUMIN 3.8 g/dL (3.3-5.0) BILIRUBIN, TOTAL 0.5 mg/dL (0.0-1.0) ALKALINE PHOSPHATASE 96 U/L (46-116) AST (SGOT) 24 U/L (15-37) ALT (SGPT) 40 U/L (12-78) LIPASE 195 U/L (73-393) AMYLASE 62 U/L (25-115) CPK 113 U/L (24-260) TROPONIN I <0.05 ng/mL (0.00-1.5) TROPONIN REFERENCE RANGE:<0.1 NEGATIVE0.1-1.5 INDETERMINANT>1.5 POSITIVE . PROGRESS AND PROCEDURES Course of Care: Patient is stable. Consult obtained from cardiology. I discussed the case with Dr. Fontana, cardiology. We reviewed the patient's history and examination findings and the results of his studies today. He feels that given the onset of the patient's symptoms and the time that has lapsed it is unlikely that this event is due to cardiac ischemia. The patient is scheduled for coronary angiogram in 2 days, on Saturday. Dr. Fontana would prefer if we not use contrast for a CT angiogram given the patient's renal insufficiency and the dye load he will receive for angiography. Therefore given his history of factor V Leiden deficiency and prior PE we will cover the patient with Lovenox tonight and tomorrow. He is to hold this morning of his angiogram and Dr. Fontana will work him up further. Case discussed. Phone consult only. Will see patient in the hospital. Patient/family counseled. Old medical records reviewed. Disposition: Discharged. Condition: stable. CLINICAL IMPRESSION Chest pain. Abnormal tests: (elevated d-dimer). INSTRUCTIONS Avoid stimulants (such as cigarettes, coffee, cold medicines, sinus medicines, street drugs). (you were given a dose of Lovenox here in the emergency room. You are to take an additional dose tomorrow morning and one tomorrow evening. take them at 7 in the morning and 7 in the evening. Do not take any blood thinners on Saturday preceding your coronary angiogram as discussed.). Warnings: Further evaluation is necessary. GENERAL WARNINGS: Return or contact your physician immediately if your condition worsens or changes unexpectedly, if not improving as expected, or if other problems arise. Your Current Medications: CONTINUE TAKING THE FOLLOWING MEDICATIONS: Albuterol Sulfate Inhalation : 1-2 puffs PRN. Aspirin Oral : Tablet 81 mg, 1 tablet daily. Lasix Oral : 40 mg. Lipitor Oral : 40 mg at bedtime. Lisinopril Oral : 10 mg daily. LORazepam Oral : 0.5 mg 3x a day, prn. Metoprolol Tartrate Oral : 50 mg 2 x daily. Metoprolol-HCTZ ER Oral : Tablet Extended Release 24 Hour 25-12.5 mg, 25 mg daily in AM. Potassium Chloride ER Oral. Potassium Chloride Oral : 20 meq daily. ProAir HFA Inhalation. Qvar Inhalation : Aerosol Solution 40 mcg/act, one puff 2 x daily. Warfarin Sodium Oral : 5 mg 1-2 tabs daily, prn, per MD's order. Prescription Medications: Lovenox 100 mg SQ. Administer every 12 hours. Dispense two (2) pre-filled syringes. No refills. Follow-up: Follow up with a health technical writer Dr. Chalo Fontana Saturday in two days as scheduled. Understanding of the discharge instructions verbalized by patient. (Electronically signed by Isrrael Castellanos MD 03/02/2016 4:48)
--- NOTE | 2016-02-29 20:59 | ED NURSING NOTES ---
Clinical Report - Nurses [place] [address] [place] [address] 02/29/2016 17:53 Patient: RAMIRO NAVARRO TRIAGE Triage time 17:58. Acuity: LEVEL 3. Chief Complaint: CHEST PAIN. Alert. No acute distress. MARIO COMA SCORE: [place] Coma Scale: 15- eyes open spontaneously (4); best verbal response- oriented x 4 (5); best motor response- obeys commands (6). --18:05 Claribel Almonte R.N. 17:58 02/29/16. BP: 107/75. HR: 79. RR: 14. O2 saturation: 98%. Temp: 97.7 F (oral). Pain level now: 10. --18:05 Claribel Almonte R.N. Weight: 99.7 kg stated. Height/Length: 72 inches Per Patient. BMI: 29.8. --18:02 Claribel Almonte R.N. Medications Albuterol Sulfate Inhalation 1-2 puffs, PRN. Aspirin Oral (Tablet 81 mg) 1 tablet, daily. Lasix Oral 40 mg. Lipitor Oral 40 mg, at bedtime. Lisinopril Oral 10 mg, daily. LORazepam Oral 0.5 mg, 3x a day as needed. Metoprolol Tartrate Oral 50 mg, 2 x daily. Metoprolol-HCTZ ER Oral (Tablet Extended Release 24 Hour 25-12.5 mg) 25 mg, daily in AM. Potassium Chloride ER Oral. Potassium Chloride Oral 20 meq, daily. ProAir HFA Inhalation. Qvar Inhalation (Aerosol Solution 40 mcg/act) one puff, 2 x daily. --18:01 Claribel Almonte R.N. Warfarin Sodium Oral 5 mg 1-2 tabs, daily as needed (per MD's order). --18:01 Claribel Almonte R.N. Medication/allergy information source: other. --18:05 Claribel Almonte R.N. Allergies Codeine. Definite Moderate(itching, swelling) --18:01 Claribel Almonte R.N. History Arrived by private vehicle. Historian: patient. Unaccompanied. Primary physician (none). This started today. Describes the quality as sharp and (constant). Relates location as in the left chest area. Notes pain level as 4/10 on arrival and 6/10 at maximum. Provoking / relieving factors: worsened by walking; relieved by rest. ( had same last week). The patient has had nausea, difficulty breathing and palpitations. Reports experiencing sweating episodes. 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 (81 mg). SOCIAL HX: Former smoker (3 weeks aago). History of drug use: marijuana. No alcohol use. FALL RISK ASSESSMENT: Fall risk assessment completed. No fall risk identified. FUNCTIONAL ASSESSMENT: Functional assessment: no impairments noted. LEARNING NEEDS ASSESSMENT: The learning needs assessment revealed no barriers. --18:05 Claribel Almonte R.N. PROBLEMS: Angina. Atrial Fibrillation. Chest Pain. Lung Disease. Irregular heartbeat. COPD - Chronic Obstructive Pulmonary Disease. Mental Illness. Pulmonary Embolism. Anxiety Reaction. PTSD. Chronic Back Pain. Diabetes Mellitus. Substance Abuse. Hypertension. Sciatica. Intervertebral Disc Disease. Lumbar Radiculopathy. Back Injury. Back Pain. --18:02 Claribel Almonte R.N. ADDITIONAL SURGERIES: Back Surgery. Knee Surgery. Tonsillectomy. --18:02 Claribel Almonte R.N. Assessment GENERAL / NEURO / PSYCH: Alert. Oriented X 4. Appears in no acute distress. Patient appears calm and cooperative. RESPIRATORY: Respirations not labored. CVS: Cardiac rhythm: sinus rhythm; frequent ectopic beats. SKIN: Skin is warm and dry. --18:05 Claribel Almonte R.N. Interventions ID and allergy band on patient. To treatment room. --18:05 Claribel Almonte R.N. PHYSICAL ASSESSMENT 18:06 02/29/16. Ambulatory to room. Patient gowned. GENERAL / NEURO / PSYCH: Alert. Oriented X 4. Appears in no acute distress. RESPIRATORY: Respirations not labored. CVS: Cardiac rhythm: sinus rhythm; frequent ectopic beats. SKIN: Skin is warm and dry. --18:06 Claribel Almonte R.N. NURSING PROGRESS NOTES 18:02/29/16. Oxygen administered by nasal cannula at 2 liters. athletic monitor, pulse oximeter and NIBP monitor placed on patient. Patient gowned. Head of bed elevated. Call light placed in reach. Side rails up x 1. Bed placed in lowest position. Brakes of bed on. --18:06 Claribel Almonte R.N. 18:07 02/29/2016 Site #1 started via IV in the right antecubital space with an 20g angiocath, with aseptic technique and good blood return; one attempt. Blood drawn: rainbow set. Labeled in the presence of the patient and sent to the lab. Saline lock flushed with 10 mL saline (by Natasha LANDEROS). --18:07 Claribel Almonte R.N. 18:08 02/29/2016 Aspirin PO Tablets 325 mg given. --18:08 Natasha Sutton R.N. EKG time: (1802). EKG was ordered, performed by a tech and shown to the ED physician. --18:12 Kristi Saenz ER Tech1 ( Paged Dr. Chalo Fontana through [facility] [place] answering service. He called back and consulted with Dr. Castellanos.). --18:51 Nadya Solano, ER Tech1 19:00 02/29/2016 Lovenox (Enoxaparin Sodium) Subcutaneous 100 mg given. Given in the right abdomen. --19:36 Cyndi Clark R.N. Patient ID band checked for patient name: patient confirmed. Instructions provided to collect clean catch urine and patient verbalized understanding. Clean catch urine collected with return of yellow-colored clear urine; sample sent to lab for urinalysis and culture. Specimen labeled in the presence of the patient. --20:31 Cyndi Clark R.N. 21:00 02/29/2016 Site #1 removed upon discharge. Catheter intact. Bandaid applied. --22:12 Cyndi Clark R.N. DISPOSITION / DISCHARGE 21:00. Condition at departure: improved. No learning barriers present. Discharge instructions provided and reviewed with the patient. Reviewed medication(s) side effects, precautions, dosing and course information. Prescription(s) given to the patient. Patient verbalized understanding. Written instructions provided in Belgian. The patient was discharged home. He left the Emergency Department ambulatory and via private vehicle. Patient driving. Medication list reviewed and validated. --22:11 Cyndi Clark R.N. 21:00 02/29/16. BP: 118/69. HR: 71. RR: 20. O2 saturation: 100% on nasal cannula at 2 liters/minute. Temp: deferred. 20:15 02/29/16. BP: 123/70. HR: 69. RR: 20. O2 saturation: 100% on nasal cannula at 2 liters/minute. Pain level now: 02/20. 19:08 02/29/16. BP: 122/78. HR: 72. RR: 16. O2 saturation: 100% on nasal cannula at 2 liters/minute. 17:58 02/29/16. BP: 107/75. HR: 79. RR: 14. O2 saturation: 98%. Temp: 97.7 F (oral). Pain level now: 05/21. --22:11 Cyndi Clark R.N. Locked/Released at 02/29/2016 22:13 by Cyndi Clark R.N.
--- NOTE | 2016-02-29 20:59 | ED ORDER SUMMARY ---
..... Patient: RAMIRO NAVARRO OrderSheet [facility] VisitID: [id number] [address] [place] [address] 55y, M Registration Date/Time: 02/29/2016 ORDER SHEET Weight: 99.7 kg (stated) Allergies: Codeine GENERAL ORDERS: Chest 1V Urgent (17:56 02/29/2016 Gloria DOBBINS) (Ack 18:00 NHouse ER Tech1) (18:27 MCampbell) Graduate Assistant (Continuous) (17:57 02/29/2016 Gloria DOBBINS) (Ack 18:10 SStone R.N.) (18:11 LNations ER Tech1) CBC w Diff Urgent (17:57 02/29/2016 Gloria DOBBINS) (Ack 18:00 NHouse ER Tech1) (18:59 SRoberts R.N.) (19:01 NHouse ER Tech1) CMP Urgent (17:57 02/29/2016 Gloria DOBBINS) (Ack 18:00 NHouse ER Tech1) (18:59 SRoberts R.N.) (19:01 NHouse ER Tech1) UA-Culture if indicated Urgent (17:57 02/29/2016 Gloria DOBBINS) (Ack 18:00 NHouse ER Tech1) (22:11 SRoberts R.N.) PT with INR Urgent (17:57 02/29/2016 Gloria DOBBINS) (Ack 18:00 NHouse ER Tech1) (18:59 SRoberts R.N.) (19:01 NHouse ER Tech1) PTT Urgent (17:57 02/29/2016 Gloria DOBBINS) (Ack 18:00 NHouse ER Tech1) (18:59 SRoberts R.N.) (19:01 NHouse ER Tech1) D-Dimer Urgent (17:57 02/29/2016 Gloria DOBBINS) (Ack 18:00 NHouse ER Tech1) (18:59 SRoberts R.N.) (19:01 NHouse ER Tech1) BNP Urgent (17:57 02/29/2016 Gloria DOBBINS) (Ack 18:00 NHouse ER Tech1) (18:59 SRoberts R.N.) (19:01 NHouse ER Tech1) Amylase Urgent (17:57 02/29/2016 Gloria DOBBINS) (Ack 18:00 NHouse ER Tech1) (18:59 SRoberts R.N.) (19:01 NHouse ER Tech1) Lipase Urgent (17:57 02/29/2016 Gloria DOBBINS) (Ack 18:00 NHouse ER Tech1) (18:59 SRoberts R.N.) (19:01 NHouse ER Tech1) CPK Urgent (17:57 02/29/2016 Gloria DOBBINS) (Ack 18:00 NHouse ER Tech1) (18:59 SRoberts R.N.) (19:01 NHouse ER Tech1) Troponin-I Urgent (17:57 02/29/2016 Gloria DOBBINS) (Ack 18:00 NHouse ER Tech1) (18:59 SRoberts R.N.) (19:01 NHouse ER Tech1) Oxygen (2 L/min) (NC) (17:57 02/29/2016 Gloria DOBBINS) (Ack 18:10 SStone R.N.) (18:59 SRoberts R.N.) Pulse oximeter (17:57 02/29/2016 Gloria DOBBINS) (Ack 18:10 SStone R.N.) (18:59 SRoberts R.N.) EKG - ER Stat (17:57 02/29/2016 Gloria DOBBINS) (Ack 18:10 SStone R.N.) (18:11 LNations ER Tech1) MEDICATION ORDERS: Aspirin PO 325 mg (NOW) (17:57 02/29/2016 Gloria DOBBINS) (Ack 18:08 SStone R.N.) (18:08 SStone R.N.) Lovenox Subcut 1 mg/kg (HIGH ALERT MEDICATION, NOW) (18:58 02/29/2016 Gloria DOBBINS) (19:36 SRoberts R.N.) IV FLUIDS: IV Saline Lock (17:57 02/29/2016 Glorai DOBBINS) (Ack 18:08 SStone R.N.) ORDER SHEET NOTES: [Electronically signed by Cyndi Clark R.N. (22:13 02/29/2016)] [Electronically signed by Isrrael Castellanos MD (04:48 03/02/2016)] [Electronically locked/signed by Cyndi Clark R.N. (22:13 02/29/2016)]
--- NOTE | 2016-02-29 20:59 | ED NURSING NOTES ---
Clinical Report - Nurses [place] [address] [place] [address] 02/29/2016 17:53 Patient: RAMIRO NAVARRO TRIAGE Triage time 17:58. Acuity: LEVEL 3. Chief Complaint: CHEST PAIN. Alert. No acute distress. MARIO COMA SCORE: [place] Coma Scale: 15- eyes open spontaneously (4); best verbal response- oriented x 4 (5); best motor response- obeys commands (6). --18:05 Claribel Almonte R.N. 17:58 02/29/16. BP: 107/75. HR: 79. RR: 14. O2 saturation: 98%. Temp: 97.7 F (oral). Pain level now: 10. --18:05 Claribel Almonte R.N. Weight: 99.7 kg stated. Height/Length: 72 inches Per Patient. BMI: 29.8. --18:02 Claribel Almonte R.N. Medications Albuterol Sulfate Inhalation 1-2 puffs, PRN. Aspirin Oral (Tablet 81 mg) 1 tablet, daily. Lasix Oral 40 mg. Lipitor Oral 40 mg, at bedtime. Lisinopril Oral 10 mg, daily. LORazepam Oral 0.5 mg, 3x a day as needed. Metoprolol Tartrate Oral 50 mg, 2 x daily. Metoprolol-HCTZ ER Oral (Tablet Extended Release 24 Hour 25-12.5 mg) 25 mg, daily in AM. Potassium Chloride ER Oral. Potassium Chloride Oral 20 meq, daily. ProAir HFA Inhalation. Qvar Inhalation (Aerosol Solution 40 mcg/act) one puff, 2 x daily. --18:01 Claribel Almonte R.N. Warfarin Sodium Oral 5 mg 1-2 tabs, daily as needed (per MD's order). --18:01 lCaribel Almonte R.N. Medication/allergy information source: other. --18:05 Claribel Almonte R.N. Allergies Codeine. Definite Moderate(itching, swelling) --18:01 Claribel Almonte R.N. History Arrived by private vehicle. Historian: patient. Unaccompanied. Primary physician (none). This started today. Describes the quality as sharp and (constant). Relates location as in the left chest area. Notes pain level as 4/10 on arrival and 6/10 at maximum. Provoking / relieving factors: worsened by walking; relieved by rest. ( had same last week). The patient has had nausea, difficulty breathing and palpitations. Reports experiencing sweating episodes. 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 (81 mg). SOCIAL HX: Former smoker (3 weeks aago). History of drug use: marijuana. No alcohol use. FALL RISK ASSESSMENT: Fall risk assessment completed. No fall risk identified. FUNCTIONAL ASSESSMENT: Functional assessment: no impairments noted. LEARNING NEEDS ASSESSMENT: The learning needs assessment revealed no barriers. --18:05 Claribel Almonte R.N. PROBLEMS: Angina. Atrial Fibrillation. Chest Pain. Lung Disease. Irregular heartbeat. COPD - Chronic Obstructive Pulmonary Disease. Mental Illness. Pulmonary Embolism. Anxiety Reaction. PTSD. Chronic Back Pain. Diabetes Mellitus. Substance Abuse. Hypertension. Sciatica. Intervertebral Disc Disease. Lumbar Radiculopathy. Back Injury. Back Pain. --18:02 Claribel Almonte R.N. ADDITIONAL SURGERIES: Back Surgery. Knee Surgery. Tonsillectomy. --18:02 Claribel Almonte R.N. Assessment GENERAL / NEURO / PSYCH: Alert. Oriented X 4. Appears in no acute distress. Patient appears calm and cooperative. RESPIRATORY: Respirations not labored. CVS: Cardiac rhythm: sinus rhythm; frequent ectopic beats. SKIN: Skin is warm and dry. --18:05 Claribel Almonte R.N. Interventions ID and allergy band on patient. To treatment room. --18:05 Claribel Almonte R.N. PHYSICAL ASSESSMENT 18:06 02/29/16. Ambulatory to room. Patient gowned. GENERAL / NEURO / PSYCH: Alert. Oriented X 4. Appears in no acute distress. RESPIRATORY: Respirations not labored. CVS: Cardiac rhythm: sinus rhythm; frequent ectopic beats. SKIN: Skin is warm and dry. --18:06 Claribel Almonte R.N. NURSING PROGRESS NOTES 18:02/29/16. Oxygen administered by nasal cannula at 2 liters. child monitor, pulse oximeter and NIBP monitor placed on patient. Patient gowned. Head of bed elevated. Call light placed in reach. Side rails up x 1. Bed placed in lowest position. Brakes of bed on. --18:06 Claribel Almonte R.N. 18:07 02/29/2016 Site #1 started via IV in the right antecubital space with an 20g angiocath, with aseptic technique and good blood return; one attempt. Blood drawn: rainbow set. Labeled in the presence of the patient and sent to the lab. Saline lock flushed with 10 mL saline (by Natasha LANDEROS). --18:07 Claribel Almonte R.N. 18:08 02/29/2016 Aspirin PO Tablets 325 mg given. --18:08 Natasha Sutton R.N. EKG time: (1802). EKG was ordered, performed by a tech and shown to the ED physician. --18:12 Kristi Saenz ER Tech1 ( Paged Dr. Chalo Fontana through [facility] [place] answering service. He called back and consulted with Dr. Castellanos.). --18:51 Nadya Solano, ER Tech1 19:00 02/29/2016 Lovenox (Enoxaparin Sodium) Subcutaneous 100 mg given. Given in the right abdomen. --19:36 Cyndi Clark R.N. Patient ID band checked for patient name: patient confirmed. Instructions provided to collect clean catch urine and patient verbalized understanding. Clean catch urine collected with return of yellow-colored clear urine; sample sent to lab for urinalysis and culture. Specimen labeled in the presence of the patient. --20:31 Cyndi Clark R.N. 21:00 02/29/2016 Site #1 removed upon discharge. Catheter intact. Bandaid applied. --22:12 Cyndi Clark R.N. DISPOSITION / DISCHARGE 21:00. Condition at departure: improved. No learning barriers present. Discharge instructions provided and reviewed with the patient. Reviewed medication(s) side effects, precautions, dosing and course information. Prescription(s) given to the patient. Patient verbalized understanding. Written instructions provided in Finnish. The patient was discharged home. He left the Emergency Department ambulatory and via private vehicle. Patient driving. Medication list reviewed and validated. --22:11 Cyndi Clark R.N. 21:00 02/29/16. BP: 118/69. HR: 71. RR: 20. O2 saturation: 100% on nasal cannula at 2 liters/minute. Temp: deferred. 20:15 02/29/16. BP: 123/70. HR: 69. RR: 20. O2 saturation: 100% on nasal cannula at 2 liters/minute. Pain level now: 02/20. 19:08 02/29/16. BP: 122/78. HR: 72. RR: 16. O2 saturation: 100% on nasal cannula at 2 liters/minute. 17:58 02/29/16. BP: 107/75. HR: 79. RR: 14. O2 saturation: 98%. Temp: 97.7 F (oral). Pain level now: 05/21. --22:11 Cyndi Clark R.N. Locked/Released at 02/29/2016 22:13 by Cyndi Clark R.N.
--- NOTE | 2016-03-02 04:48 | ED MED RECONCILIATION SUMMARY ---
Patient: RAMIRO NAVARRO Medication Reconciliation Report [facility] VisitID: [id number] [address] [place] [address] 55y, M Registration Date/Time: 02/29/2016 Weight: 99.7 kg Height/Length: 72 in. BMI: 29.8 ALLERGIES: Codeine The patient's Home Medications are listed below: CONTINUE TAKING THE FOLLOWING MEDICATIONS: Albuterol Sulfate Inhalation 1-2 puffs, PRN Aspirin Oral (81 mg) 1 tablet, daily Lasix Oral 40 mg Lipitor Oral 40 mg, at bedtime Lisinopril Oral 10 mg, daily LORazepam Oral 0.5 mg, 3x a day Metoprolol Tartrate Oral 50 mg, 2 x daily Metoprolol-HCTZ ER Oral (25-12.5 mg) 25 mg, daily in AM Potassium Chloride ER Oral Potassium Chloride Oral 20 meq, daily ProAir HFA Inhalation Qvar Inhalation (40 mcg/act) one puff, 2 x daily Warfarin Sodium Oral 5 mg 1-2 tabs, daily, per MD's order The source(s) of the original Home Medication information: other The following Medications were given to the patient in the Emergency Department: Aspirin [PO] PO 325 mg, administered: 02/29/2016 6:08:00 PM Lovenox [Subcutaneous] Subcutaneous 100 mg, administered: 02/29/2016 7:00:00 PM The following Medications were prescribed to the patient: Lovenox 100 mg SQ. Administer every 12 hours. Dispense two (2) pre-filled syringes. No refills. -- Isrrael Castellanos MD
--- NOTE | 2016-03-02 04:48 | ED MAR SUMMARY ---
..... Medication Administration Record [facility] [address] [place] [address] Patient: RAMIRO NAVARRO Visit ID: [id number] 55y, M Weight: 99.7 kg Height/Length: 72 in BMI: 29.8 ALLERGIES: Codeine Given 18:08 02/29/2016 Natasha Sutton R.N. Medication Administered: ASPIRIN [PO], Dose: 325 mg Tablets PO. Medication Ordered: Aspirin PO 325 mg (NOW). Given 19:00 02/29/2016 Cyndi Clark R.N. Medication Administered: LOVENOX [SUBCUTANEOUS] (ENOXAPARIN SODIUM), Dose: 100 mg Subcutaneous. Medication Ordered: Lovenox Subcut 1 mg/kg (HIGH ALERT MEDICATION, NOW).
--- NOTE | 2016-03-02 04:48 | ED MAR SUMMARY ---
..... Medication Administration Record [facility] [address] [place] [address] Patient: RAMIRO NAVARRO Visit ID: [id number] 55y, M Weight: 99.7 kg Height/Length: 72 in BMI: 29.8 ALLERGIES: Codeine Given 18:08 02/29/2016 Natasha Sutton R.N. Medication Administered: ASPIRIN [PO], Dose: 325 mg Tablets PO. Medication Ordered: Aspirin PO 325 mg (NOW). Given 19:00 02/29/2016 Cyndi Clark R.N. Medication Administered: LOVENOX [SUBCUTANEOUS] (ENOXAPARIN SODIUM), Dose: 100 mg Subcutaneous. Medication Ordered: Lovenox Subcut 1 mg/kg (HIGH ALERT MEDICATION, NOW).
--- NOTE | 2016-03-02 04:48 | ED DISCHARGE INSTRUCTIONS ---
Patient: RAMIRO NAVARRO General Instructions [facility] VisitID: [id number] [address] [place] [address] 55y, M Registration Date/Time: 02/29/2016 Chest pain. Abnormal tests: (elevated d-dimer). INSTRUCTIONS Avoid stimulants (such as cigarettes, coffee, cold medicines, sinus medicines, street drugs). (you were given a dose of Lovenox here in the emergency room. You are to take an additional dose tomorrow morning and one tomorrow evening. take them at 7 in the morning and 7 in the evening. Do not take any blood thinners on Saturday preceding your coronary angiogram as discussed.). Warnings: Further evaluation is necessary. GENERAL WARNINGS: Return or contact your physician immediately if your condition worsens or changes unexpectedly, if not improving as expected, or if other problems arise. Your Current Medications: CONTINUE TAKING THE FOLLOWING MEDICATIONS: Albuterol Sulfate Inhalation : 1-2 puffs PRN. Aspirin Oral : Tablet 81 mg, 1 tablet daily. Lasix Oral : 40 mg. Lipitor Oral : 40 mg at bedtime. Lisinopril Oral : 10 mg daily. LORazepam Oral : 0.5 mg 3x a day, prn. Metoprolol Tartrate Oral : 50 mg 2 x daily. Metoprolol-HCTZ ER Oral : Tablet Extended Release 24 Hour 25-12.5 mg, 25 mg daily in AM. Potassium Chloride ER Oral. Potassium Chloride Oral : 20 meq daily. ProAir HFA Inhalation. Qvar Inhalation : Aerosol Solution 40 mcg/act, one puff 2 x daily. Warfarin Sodium Oral : 5 mg 1-2 tabs daily, prn, per MD's order. Prescription Medications: Lovenox 100 mg SQ. Administer every 12 hours. Dispense two (2) pre-filled syringes. No refills. 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 Chalo Fontana Saturday in two days as scheduled. Understanding of the discharge instructions verbalized by patient. ADDITIONAL INFORMATION Chest Pain, Uncertain Cause Chest pain can happen for a number of reasons. Sometimes the cause can not be determined. If yourcondition does not seem serious, and your pain does not appear to be coming from your heart, your doctor may recommend watching it closely. Sometimes the signs of a serious problem take more time to appear. Therefore, watch for the warning signs listed below. Home care After your visit, follow these recommendations: Rest today and avoid strenuous activity. Take any prescribed medicine as directed. Follow-up care Follow up with your doctor or this facility as instructed or if you do not start to feel better within 24 hours. Call 911 Get immediate medical attention if any of the following occur: A change in the type of pain: if it feels different, becomes more severe, lasts longer, or begins to spread into your shoulder, arm, neck, jaw or back Shortness of breath or increased pain with breathing Weakness, dizziness, or fainting Rapid heart beat Get prompt medical attention Call your doctor right away if any of the following occur: Cough with dark colored sputum (phlegm) or blood Fever of 100.4F(38C) or higher, or as directed by your health care provider Swelling, pain or redness in one leg Enoxaparin Sodium (Porcine) Solution for injection What is this medicine? ENOXAPARIN (ee nox a PA rin) is used after knee, hip, or abdominal surgeries to prevent blood clotting. It is also used to treat existing blood clots in the lungs or in the veins. How should I use this medicine? This medicine is for injection under the skin. It is usually given by a health-critical care technician. You or a family member may be trained on how to give the injections. If you are to give yourself injections, make sure you understand how to use the syringe, measure the dose if necessary, and give the injection. To avoid bruising, do not rub the site where this medicine has been injected. Do not take your medicine more often than directed. Do not stop taking except on the advice of your doctor or health critical care technician. Make sure you receive a puncture-resistant container to dispose of the needles and syringes once you have finished with them. Do not reuse these items. Return the container to your doctor or health critical care technician for proper disposal. Talk to your algebra tutor regarding the use of this medicine in children. Special care may be needed. What side effects may I notice from receiving this medicine? Side effects that you should report to your doctor or health critical care technician as soon as possible: allergic reactions like skin rash, itching or hives, swelling of the face, lips, or tongue dark urine feeling faint or lightheaded, falls fever heavy menstrual bleeding signs and symptoms of bleeding such as bloody or black, tarry stools; red or dark-brown urine; spitting up blood or brown material that looks like coffee grounds; red spots on the skin; unusual bruising or bleeding from the eye, gums, or nose signs and symptoms of a blood clot such as breathing problems; changes in vision; chest pain; severe, sudden headache; pain, swelling, warmth in the leg; trouble speaking; sudden numbness or weakness of the face, arm, or leg Side effects that usually do not require medical attention (report to your doctor or health critical care technician if they continue or are bothersome): pain or irritation at the injection site What may interact with this medicine? Do not take this medicine with any of the following medications: -aspirin and aspirin-like medicines -heparin -mifepristone -palifermin -warfarin This medicine may also interact with the following medications: -cilostazol -clopidogrel -dipyridamole -NSAIDs, medicines for pain and inflammation, like ibuprofen or naproxen -sulfinpyrazone -ticlopidine What if I miss a dose? If you miss a dose, take it as soon as you can. If it is almost time for your next dose, take only that dose. Do not take double or extra doses. Where should I keep my medicine? Keep out of the reach of children. Store at room temperature between 15 and 30 degrees C (59 and 86 degrees F). Do not freeze. If your injections have been specially prepared, you may need to store them in the refrigerator. Ask your pharmacist. Throw away any unused medicine after the expiration date. What should I tell my health care provider before I take this medicine? They need to know if you have any of these conditions: bleeding disorders, hemorrhage, or hemophilia infection of the heart or heart valves kidney or liver disease previous stroke prosthetic heart valve recent surgery or delivery of a baby ulcer in the stomach or intestine, diverticulitis, or other bowel disease an unusual or allergic reaction to enoxaparin, heparin, pork or pork products, other medicines, foods, dyes, or preservatives or trying to get breast-feeding What should I watch for while using this medicine? Visit your doctor or health critical care technician for regular checks on your progress. Your condition will be monitored carefully while you are receiving this medicine. If you are going to have surgery, tell your doctor or health critical care technician that you are taking this medicine. Do not stop taking this medicine without first talking to your doctor. Be sure to refill your prescription before you run out of medicine. Avoid sports and activities that might cause injury while you are using this medicine. Severe falls or injuries can cause unseen bleeding. Be careful when using sharp tools or knives. Consider using an electric razor. Take special care brushing or flossing your teeth. Report any injuries, bruising, or red spots on the skin to your doctor or health critical care technician. You have been given the following additional information: Chest Pain, Uncertain Cause Enoxaparin Sodium (Porcine) Solution for injection (Electronically signed by Isrrael Castellanos MD 03/02/2016 4:48)
--- NOTE | 2016-03-02 04:48 | ED DISCHARGE INSTRUCTIONS ---
Patient: RAMIRO NAVARRO General Instructions [facility] VisitID: [id number] [place] [address] 55y, M Registration Date/Time: 02/29/2016 Chest pain. Abnormal tests: (elevated d-dimer). INSTRUCTIONS Avoid stimulants (such as cigarettes, coffee, cold medicines, sinus medicines, street drugs). (you were given a dose of Lovenox here in the emergency room. You are to take an additional dose tomorrow morning and one tomorrow evening. take them at 7 in the morning and 7 in the evening. Do not take any blood thinners on Saturday preceding your coronary angiogram as discussed.). Warnings: Further evaluation is necessary. GENERAL WARNINGS: Return or contact your physician immediately if your condition worsens or changes unexpectedly, if not improving as expected, or if other problems arise. Your Current Medications: CONTINUE TAKING THE FOLLOWING MEDICATIONS: Albuterol Sulfate Inhalation : 1-2 puffs PRN. Aspirin Oral : Tablet 81 mg, 1 tablet daily. Lasix Oral : 40 mg. Lipitor Oral : 40 mg at bedtime. Lisinopril Oral : 10 mg daily. LORazepam Oral : 0.5 mg 3x a day, prn. Metoprolol Tartrate Oral : 50 mg 2 x daily. Metoprolol-HCTZ ER Oral : Tablet Extended Release 24 Hour 25-12.5 mg, 25 mg daily in AM. Potassium Chloride ER Oral. Potassium Chloride Oral : 20 meq daily. ProAir HFA Inhalation. Qvar Inhalation : Aerosol Solution 40 mcg/act, one puff 2 x daily. Warfarin Sodium Oral : 5 mg 1-2 tabs daily, prn, per MD's order. Prescription Medications: Lovenox 100 mg SQ. Administer every 12 hours. Dispense two (2) pre-filled syringes. No refills. Follow-up: Follow up with a high risk case manager Dr. Chalo Fontana Saturday in two days as scheduled. Understanding of the discharge instructions verbalized by patient. ADDITIONAL INFORMATION Chest Pain, Uncertain Cause Chest pain can happen for a number of reasons. Sometimes the cause can not be determined. If yourcondition does not seem serious, and your pain does not appear to be coming from your heart, your doctor may recommend watching it closely. Sometimes the signs of a serious problem take more time to appear. Therefore, watch for the warning signs listed below. Home care After your visit, follow these recommendations: Rest today and avoid strenuous activity. Take any prescribed medicine as directed. Follow-up care Follow up with your doctor or this facility as instructed or if you do not start to feel better within 24 hours. Call 911 Get immediate medical attention if any of the following occur: A change in the type of pain: if it feels different, becomes more severe, lasts longer, or begins to spread into your shoulder, arm, neck, jaw or back Shortness of breath or increased pain with breathing Weakness, dizziness, or fainting Rapid heart beat Get prompt medical attention Call your doctor right away if any of the following occur: Cough with dark colored sputum (phlegm) or blood Fever of 100.4F(38C) or higher, or as directed by your health care provider Swelling, pain or redness in one leg Enoxaparin Sodium (Porcine) Solution for injection What is this medicine? ENOXAPARIN (ee nox a PA rin) is used after knee, hip, or abdominal surgeries to prevent blood clotting. It is also used to treat existing blood clots in the lungs or in the veins. How should I use this medicine? This medicine is for injection under the skin. It is usually given by a health-care technician. You or a family member may be trained on how to give the injections. If you are to give yourself injections, make sure you understand how to use the syringe, measure the dose if necessary, and give the injection. To avoid bruising, do not rub the site where this medicine has been injected. Do not take your medicine more often than directed. Do not stop taking except on the advice of your doctor or health care technician. Make sure you receive a puncture-resistant container to dispose of the needles and syringes once you have finished with them. Do not reuse these items. Return the container to your doctor or health care technician for proper disposal. Talk to your court usher regarding the use of this medicine in children. Special care may be needed. What side effects may I notice from receiving this medicine? Side effects that you should report to your doctor or health care technician as soon as possible: allergic reactions like skin rash, itching or hives, swelling of the face, lips, or tongue dark urine feeling faint or lightheaded, falls fever heavy menstrual bleeding signs and symptoms of bleeding such as bloody or black, tarry stools; red or dark-brown urine; spitting up blood or brown material that looks like coffee grounds; red spots on the skin; unusual bruising or bleeding from the eye, gums, or nose signs and symptoms of a blood clot such as breathing problems; changes in vision; chest pain; severe, sudden headache; pain, swelling, warmth in the leg; trouble speaking; sudden numbness or weakness of the face, arm, or leg Side effects that usually do not require medical attention (report to your doctor or health care technician if they continue or are bothersome): pain or irritation at the injection site What may interact with this medicine? Do not take this medicine with any of the following medications: -aspirin and aspirin-like medicines -heparin -mifepristone -palifermin -warfarin This medicine may also interact with the following medications: -cilostazol -clopidogrel -dipyridamole -NSAIDs, medicines for pain and inflammation, like ibuprofen or naproxen -sulfinpyrazone -ticlopidine What if I miss a dose? If you miss a dose, take it as soon as you can. If it is almost time for your next dose, take only that dose. Do not take double or extra doses. Where should I keep my medicine? Keep out of the reach of children. Store at room temperature between 15 and 30 degrees C (59 and 86 degrees F). Do not freeze. If your injections have been specially prepared, you may need to store them in the refrigerator. Ask your pharmacist. Throw away any unused medicine after the expiration date. What should I tell my health care provider before I take this medicine? They need to know if you have any of these conditions: bleeding disorders, hemorrhage, or hemophilia infection of the heart or heart valves kidney or liver disease previous stroke prosthetic heart valve recent surgery or delivery of a baby ulcer in the stomach or intestine, diverticulitis, or other bowel disease an unusual or allergic reaction to enoxaparin, heparin, pork or pork products, other medicines, foods, dyes, or preservatives or trying to get breast-feeding What should I watch for while using this medicine? Visit your doctor or health care technician for regular checks on your progress. Your condition will be monitored carefully while you are receiving this medicine. If you are going to have surgery, tell your doctor or health care technician that you are taking this medicine. Do not stop taking this medicine without first talking to your doctor. Be sure to refill your prescription before you run out of medicine. Avoid sports and activities that might cause injury while you are using this medicine. Severe falls or injuries can cause unseen bleeding. Be careful when using sharp tools or knives. Consider using an electric razor. Take special care brushing or flossing your teeth. Report any injuries, bruising, or red spots on the skin to your doctor or health care technician. You have been given the following additional information: Chest Pain, Uncertain Cause Enoxaparin Sodium (Porcine) Solution for injection (Electronically signed by Isrrael Castellanos MD 03/02/2016 4:48)
--- NOTE | 2016-03-02 04:48 | ED MED RECONCILIATION SUMMARY ---
Patient: RAMIRO NAVARRO Medication Reconciliation Report [facility] VisitID: [id number] [place] [address] 55y, M Registration Date/Time: 02/29/2016 Weight: 99.7 kg Height/Length: 72 in. BMI: 29.8 ALLERGIES: Codeine The patient's Home Medications are listed below: CONTINUE TAKING THE FOLLOWING MEDICATIONS: Albuterol Sulfate Inhalation 1-2 puffs, PRN Aspirin Oral (81 mg) 1 tablet, daily Lasix Oral 40 mg Lipitor Oral 40 mg, at bedtime Lisinopril Oral 10 mg, daily LORazepam Oral 0.5 mg, 3x a day Metoprolol Tartrate Oral 50 mg, 2 x daily Metoprolol-HCTZ ER Oral (25-12.5 mg) 25 mg, daily in AM Potassium Chloride ER Oral Potassium Chloride Oral 20 meq, daily ProAir HFA Inhalation Qvar Inhalation (40 mcg/act) one puff, 2 x daily Warfarin Sodium Oral 5 mg 1-2 tabs, daily, per MD's order The source(s) of the original Home Medication information: other The following Medications were given to the patient in the Emergency Department: Aspirin [PO] PO 325 mg, administered: 02/29/2016 6:08:00 PM Lovenox [Subcutaneous] Subcutaneous 100 mg, administered: 02/29/2016 7:00:00 PM The following Medications were prescribed to the patient: Lovenox 100 mg SQ. Administer every 12 hours. Dispense two (2) pre-filled syringes. No refills. -- Isrrael Castellanos MD
== END 2016-02-29 21:00 | disposition home or self-care (01) ==
LOC: ED SRH 17:53
DX: R07.9 Chest pain, unspecified (principal); R79.89 Other specified abnormal findings of blood chemistry; D68.2 Hereditary deficiency of other clotting factors; Z87.891 Personal history of nicotine dependence; Z79.82 Long term (current) use of aspirin; Z79.899 Other long term (current) drug therapy
CPT/HCPCS: 90004; 90100; 90616; 91320; 91556; 92235; 92530; 92610; 94001; 94060; 95059